=== PATIENT | male | born 1935 | race American Indian/Alaskan Native ===

== ENCOUNTER 2018-07-17 00:28 | Inpatient (IN) | payer MEDICARE, OTHER ==
[2018-07-17 01:26] LABS: Eosinophils # (Auto) 0.1 K/mm3 (0.0-0.4); Eosinophils % (Auto) 1.8 % (0.0-4.3); Hematocrit 41.2 % (35.5-45.6); Hemoglobin 13.5 gm/dl (11.8-15.2); Lymphocytes % (Auto) 46.1 % (13.4-35.0); Mean Corpuscular HGB Conc 33 % (32-34); Mean Corpuscular Volume 95 fl (84-94); Monocytes # (Auto) 0.4 K/mm3 (0.0-0.8); Monocytes % (Auto) 8.5 % (0.0-7.3); Platelet Count 158 K/mm3 (140-440); Red Blood Count 4.33 M/mm3 (3.65-5.03); Red Cell Distribution Width 14.8 % (13.2-15.2)
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
[2018-07-17 01:42] LABS: BUN/Creatinine Ratio 17; Blood Urea Nitrogen 19 mg/dL (9-20); Calcium 9.1 mg/dL (8.4-10.2); Hemolysis Index 9
--- NOTE | 2018-07-17 01:53 | XRay Report ---
FINAL REPORT PROCEDURE: XR CHEST 1V AP TECHNIQUE: Chest radiograph anteroposterior view. CPT 96879 HISTORY: chest pain COMPARISON: December 21, 2017 FINDINGS: Heart: Normal. Mediastinum/Vessels: Normal. Lungs/Pleural space: Normal. Bony thorax: No acute osseous abnormality. Life support devices: None. IMPRESSION: No acute cardiopulmonary abnormality.
--- NOTE | 2018-07-17 02:23 | Cat Scan Report ---
FINAL REPORT PROCEDURE: CT HEAD/BRAIN WO CON TECHNIQUE: Computerized tomography of the head was performed without contrast material. HISTORY: dizziness COMPARISON: No prior studies are available for comparison. FINDINGS: Skull and scalp: Normal. Paranasal sinuses: Normal. Ventricles and subarachnoid spaces: Normal. Cerebrum: No evidence of hemorrhage, acute infarction or mass . Cerebellum and brainstem: No evidence of hemorrhage, acute infarction or mass. Vasculature: Normal. Comments: None. IMPRESSION: Normal Examination
[2018-07-17] MEDS ORDERED: SODIUM CHLORIDE FLUSH SYRINGE 10 ML IV PRN ×2 (03:34)
[2018-07-17] MEDS ORDERED: ZOFRAN IV PRN (03:34)
[2018-07-17] MEDS ORDERED: MORPHINE IV PRN (03:34)
[2018-07-17] MEDS ORDERED: TYLENOL PO PRN (03:34)
[2018-07-17 04:13] LABS: Basophils % (Auto) 0.8 % (0.0-1.8); Eosinophils # (Auto) 0.1 K/mm3 (0.0-0.4); Eosinophils % (Auto) 2.1 % (0.0-4.3); Hematocrit 38.5 % (35.5-45.6); Hemoglobin 12.9 gm/dl (11.8-15.2); Lymphocytes # (Auto) 2.4 K/mm3 (1.2-5.4); Lymphocytes % (Auto) 52.9 % (13.4-35.0); Mean Corpuscular HGB Conc 33 % (32-34); Mean Corpuscular Volume 94 fl (84-94); Monocytes # (Auto) 0.4 K/mm3 (0.0-0.8); Monocytes % (Auto) 8.1 % (0.0-7.3); Platelet Count 157 K/mm3 (140-440); Red Blood Count 4.08 M/mm3 (3.65-5.03); Red Cell Distribution Width 14.7 % (13.2-15.2)
--- NOTE | 2018-07-17 05:15 | History and Physical Report ---
History of Present Illness Date of examination: 07/17/18 Date of admission: 07/17/18 04:18 Chief complaint: high blood pressure and dizine History of present illness: Patient is an 82-year-old male with PMHx of CAD/status post S/P ID and stent placement, hypertension, hyperlipidemia, who presents to the ER with the complaints of dizziness, " seeing dark spot ", sweating and elevated blood pressure about 40 mins prior to coming to the ER. Patient states that he was in his garage playing Ping pong when he started feeling lightheaded, he was seen dark spots, he states that went to check his blood pressure which was above 216/116, and he starts to feel having chest pain. Patient states that he called EMS, he was instructed to take a nitro sublingual and an aspirin while waiting for rescue to arrive. Patient reports intermittent substernal chest pain, loca ronna on the left side of the chest, no radiation to the arm and diaphoresis. Patient reports similar chest pain in the past with ID, he denies shortness of breath, denies headache, denies nausea, denies vomiting, denies syncope. Patient was seen in the ER, his EKG shows no acute STEMI criteria, fist cardiac enzymes is negative, his chest x-ray is negative and his blood pressure was elevated. Pt was initially treated in the ER, and admitted for chest pain to rule out ACS. Past History Past Medical History: acute ID, arthritis, hypertension, hyperlipidemia Past Surgical History: Other (Endarterectomy) Social history: , other (quit smoking) Family history: no significant family history Medications and Allergies Allergies Allergy/AdvReac Type Severity Reaction Status Date / Time No Known Allergies Allergy Verified 06/29/15 15:28 Home Medications Medication Instructions Recorded Confirmed Last Taken Type Multivitamin [Multi-Vitamin Daily] 1 each PO DAILY 05/11/14 12/22/17 02/12/15 History Lisinopril [Zestril TAB] 5 mg PO QDAY #30 tablet 02/16/15 12/22/17 12/20/17 Rx 5 Atorvastatin [Lipitor] 80 mg PO QHS 09/14/15 12/22/17 12/21/17 09:00 History 80 Vit D3-Vit K/Berberine/Hops 1 tab PO DAILY 09/14/15 12/22/17 1 Day Ago History [Ostera Tablet] ~12/21/17 Aspirin [Aspirin BABY CHEW TAB] 81 mg PO QDAY #30 tab.chew 09/19/15 12/22/17 12/21/17 09:00 Rx 81 Clopidogrel [Plavix] 75 mg PO DAILY #30 tablet 09/19/15 12/22/17 12/20/17 09:00 Rx 75 Carvedilol [Coreg] 12.5 mg PO BID 12/21/17 12/22/17 12/20/17 History 12.5 Finasteride [Proscar] 5 mg PO QHS 12/22/17 12/22/17 2 Days Ago History ~12/20/17 Tamsulosin HCl [Flomax] 0.4 mg PO QHS 12/22/17 12/22/17 Unknown History ISOSORBIDE MONOnitrate [Imdur ER] 60 mg PO QDAY 07/17/18 07/17/18 07/16/18 History 60 mg Active Meds: Active Medications Acetaminophen (Tylenol) 650 mg PO Q4H PRN PRN Reason: Pain MILD(1-3)/Fever >100.5/HERNANDEZ Aspirin (Ecotrin) 325 mg PO QDAY [facility] Famotidine (Pepcid) 20 mg IV BID [facility] Morphine Sulfate (Morphine) 2 mg IV Q4H PRN PRN Reason: Pain, Moderate (4-6) Ondansetron HCl (Zofran) 4 mg IV Q8H PRN PRN Reason: Nausea And Vomiting Sodium Chloride (Sodium Chloride Flush Syringe 10 Ml) 10 ml IV BID [facility] Sodium Chloride (Sodium Chloride Flush Syringe 10 Ml) 10 ml IV PRN PRN PRN Reason: LINE FLUSH Review of Systems Cardiovascular: chest pain, lightheadedness Exam - Constitutional Vitals: Temp Pulse Resp BP Pulse Ox 98.1 F 57 L 14 179/88 94 07/17/18 00:47 07/17/18 04:00 07/17/18 04:00 07/17/18 04:15 07/17/18 04:15 General appearance: Present: no acute distress - EENT Eyes: Present: PERRL, EOM intact ENT: hearing intact - Neck Neck: Present: supple, normal ROM - Respiratory Respiratory effort: normal Respiratory: bilateral: CTA - Cardiovascular Rhythm: regular - Rectal Rectal Exam: deferred - Integumentary Integumentary: Present: warm, dry - Musculoskeletal Musculoskeletal: strength equal bilaterally - Psychiatric Psychiatric: appropriate mood/affect, memory intact - Neurologic Neurologic: moves all extremities Results - Labs CBC & Chem 7: 07/17/18 03:51 07/17/18 01:01 Labs: Laboratory Last Values WBC 4.5 K/mm3 (4.5-11.0) 07/17/18 03:51 RBC 4.08 M/mm3 (3.65-5.03) 07/17/18 03:51 Hgb 12.9 gm/dl (11.8-15.2) 07/17/18 03:51 Hct 38.5 % (35.5-45.6) 07/17/18 03:51 MCV 94 fl (84-94) 07/17/18 03:51 MCH 32 pg (28-32) 07/17/18 03:51 MCHC 33 % (32-34) 07/17/18 03:51 RDW 14.7 % (13.2-15.2) 07/17/18 03:51 Plt Count 157 K/mm3 (140-440) 07/17/18 03:51 Lymph % (Auto) 52.9 % (13.4-35.0) H 07/17/18 03:51 [place] % (Auto) 8.1 % (0.0-7.3) H 07/17/18 03:51 Eos % (Auto) 2.1 % (0.0-4.3) 07/17/18 03:51 Baso % (Auto) 0.8 % (0.0-1.8) 07/17/18 03:51 Lymph # 2.4 K/mm3 (1.2-5.4) 07/17/18 03:51 [place] # 0.4 K/mm3 (0.0-0.8) 07/17/18 03:51 Eos # 0.1 K/mm3 (0.0-0.4) 07/17/18 03:51 Baso # 0.0 K/mm3 (0.0-0.1) 07/17/18 03:51 Seg Neutrophils % 36.1 % (40.0-70.0) L 07/17/18 03:51 Seg Neutrophils # 1.6 K/mm3 (1.8-7.7) L 07/17/18 03:51 Sodium 145 mmol/L (137-145) 07/17/18 01:01 Potassium 4.2 mmol/L (3.6-5.0) 07/17/18 01:01 Chloride 109.6 mmol/L (98-107) H 07/17/18 01:01 Carbon Dioxide 29 mmol/L (22-30) 07/17/18 01:01 Anion Gap 11 mmol/L 07/17/18 01:01 BUN 19 mg/dL (9-20) 07/17/18 01:01 Creatinine 1.1 mg/dL (0.8-1.5) 07/17/18 01:01 Estimated GFR > 60 ml/min 07/17/18 01:01 BUN/Creatinine Ratio 17 % 07/17/18 01:01 Glucose 119 mg/dL (75-100) H 07/17/18 01:01 Calcium 9.1 mg/dL (8.4-10.2) 07/17/18 01:01 Troponin T < 0.010 ng/mL (0.00-0.029) 07/17/18 01:01 Assessment and Plan Assessment and plan: 1. Chest pain r/o ACS 2. CAD/ID s/p stent placement 3. Accelerated hypertension 4. Hyperlipidemia 5. 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
[2018-07-17 05:30] LABS: BUN/Creatinine Ratio 19; Blood Urea Nitrogen 19 mg/dL (9-20); Hemolysis Index 8
[2018-07-17] MEDS ORDERED: ZESTRIL PO SCH (10:00)
[2018-07-17] MEDS ORDERED: NON-FORMULARY (Multivitamin [Multi-Vitamin Daily] 1 EACH) PO SCH (10:00)
[2018-07-17] MEDS: IMDUR PO SCH (10:50)
[2018-07-17] MEDS: THERAGRAN Tab PO SCH (10:50)
[2018-07-17] MEDS: BABY ASPIRIN PO SCH (10:51)
[2018-07-17] MEDS: PEPCID IV SCH ×2 (10:51→22:35)
[2018-07-17] MEDS: COREG PO SCH ×2 (10:51→22:34)
[2018-07-17] MEDS: SODIUM CHLORIDE FLUSH SYRINGE 10 ML IV SCH ×2 (10:51→22:36)
--- NOTE | 2018-07-17 13:16 | Consultation ---
History of Present Illness Consult date: 07/17/18 Consult reason: chest pain History of present illness: The patient is an 82-year-old man with multivessel coronary artery disease. In January 2015, he underwent staged 2 vessel coronary intervention with drug- eluting stent placement to the mid LAD, followed by a second vessel drug-eluting stent implantation into the proximal and distal segments of the right coronary artery. Left ventricular function assessment demonstrated well preserved left ventricle systolic function. 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 He presents to the hospital at this time, complains that his blood pressure was markedly elevated at home, 218 systolic, associated with dizziness and some visual symptoms including diplopia. In the ambulance, his blood pressure remained over 200, but with further intervention the blood pressure was 160 systolic in the emergency room. In addition to his neurological symptoms, he also felt some left-sided chest pressure, which resolved by the time of his arrival in the emergency room. EKG in the hospital is normal sinus rhythm, left axis deviation, left ventricular hypertrophy, poor with progression of the possible old anterior myocardial infarction. No acute ST or T-wave abnormalities were noted. The cardiac troponin levels are normal. Past History Past Medical History: acute ID, arthritis, CAD, hypertension, hyperlipidemia Past Surgical History: PTCA, Other (Endarterectomy) Social history: , other (quit smoking) Family history: no significant family history Medications and Allergies Allergies Allergy/AdvReac Type Severity Reaction Status Date / Time No Known Allergies Allergy Verified 06/29/15 15:28 Home Medications Medication Instructions Recorded Confirmed Last Taken Type Multivitamin [Multi-Vitamin Daily] 1 each PO DAILY 05/11/14 07/17/18 07/14/18 History Lisinopril [Zestril TAB] 5 mg PO QDAY #30 tablet 02/16/15 07/17/18 07/16/18 Rx 5 mg Atorvastatin [Lipitor] 80 mg PO QHS 09/14/15 07/17/18 07/15/18 History 80 mg Vit D3-Vit K/Berberine/Hops 1 tab PO DAILY 09/14/15 07/17/18 07/14/18 History [Ostera Tablet] Aspirin [Aspirin BABY CHEW TAB] 81 mg PO QDAY #30 tab.chew 09/19/15 07/17/18 07/16/18 Rx 81 Clopidogrel [Plavix] 75 mg PO DAILY #30 tablet 09/19/15 07/17/18 07/16/18 Rx 75 mg Carvedilol [Coreg] 12.5 mg PO BID 12/21/17 07/17/18 07/16/18 History 12.5 mg Finasteride [Proscar] 5 mg PO QHS 12/22/17 07/17/18 07/16/18 History 5 mg Tamsulosin HCl [Flomax] 0.4 mg PO QHS 12/22/17 07/17/18 07/16/18 History 0.4 mg ISOSORBIDE MONOnitrate [Imdur ER] 60 mg PO QDAY 07/17/18 07/17/18 07/16/18 History 60 mg Active Meds: Active Medications Acetaminophen (Tylenol) 650 mg PO Q4H PRN PRN Reason: Pain MILD(1-3)/Fever >100.5/HERNANDEZ Aspirin (Ecotrin) 325 mg PO QDAY [facility] Aspirin (Baby Aspirin) 81 mg PO QDAY [facility] Last Admin: 07/17/18 10:51 Dose: 81 mg Documented by: Atorvastatin Calcium (Lipitor) 80 mg PO QHS [facility] Carvedilol (Coreg) 12.5 mg PO BID [facility] Last Admin: 07/17/18 10:51 Dose: 12.5 mg Documented by: Famotidine (Pepcid) 20 mg IV BID [facility] Last Admin: 07/17/18 10:51 Dose: 20 mg Documented by: Finasteride (Proscar) 5 mg PO QHS [facility] Isosorbide Mononitrate (Imdur) 60 mg PO QDAY [facility] Last Admin: 07/17/18 10:50 Dose: 60 mg Documented by: Lisinopril (Zestril) 5 mg PO QDAY [facility] Last Admin: 07/17/18 10:52 Dose: 5 mg Documented by: Morphine Sulfate (Morphine) 2 mg IV Q4H PRN PRN Reason: Pain, Moderate (4-6) Multivitamins (Theragran Tab) 1 each PO DAILY [facility] Last Admin: 07/17/18 10:50 Dose: 1 each Documented by: Ondansetron HCl (Zofran) 4 mg IV Q8H PRN PRN Reason: Nausea And Vomiting Sodium Chloride (Sodium Chloride Flush Syringe 10 Ml) 10 ml IV BID [facility] Last Admin: 07/17/18 10:51 Dose: 10 ml Documented by: Sodium Chloride (Sodium Chloride Flush Syringe 10 Ml) 10 ml IV PRN PRN PRN Reason: LINE FLUSH Review of Systems Cardiovascular: chest pain, shortness of breath, no orthopnea, no palpitations, no rapid/irregular heart beat, no edema, no syncope, no lightheadedness Neurological: double vision, other (dizziness and lightheadedness) Physical Examination Vital Signs Pulse Ox 85 07/17/18 00:46 General appearance: no acute distress HEENT: Positive: PERRL Neck: Positive: neck supple Cardiac: Positive: Reg Rate and Rhythm Lungs: Positive: Decreased Breath Sounds Neuro: Positive: Grossly Intact Abdomen: Positive: Soft Male genitourinary: Positive: deferred Skin: Positive: Clear Extremities: Absent: edema Results 07/17/18 03:51 07/17/18 03:51 CBC 07/17/18 07/17/18 Range/Units 01:01 03:51 WBC 4.2 L 4.5 (4.5-11.0) K/mm3 RBC 4.33 4.08 (3.65-5.03) M/mm3 Hgb 13.5 12.9 (11.8-15.2) gm/dl Hct 41.2 38.5 (35.5-45.6) % Plt Count 158 157 (140-440) K/mm3 Lymph # 2.0 2.4 (1.2-5.4) K/mm3 [place] # 0.4 0.4 (0.0-0.8) K/mm3 Eos # 0.1 0.1 (0.0-0.4) K/mm3 Baso # 0.0 0.0 (0.0-0.1) K/mm3 Comprehensive Metabolic Panel 07/17/18 07/17/18 Range/Units 01:01 03:51 Sodium 145 147 H (137-145) mmol/L Potassium 4.2 4.3 (3.6-5.0) mmol/L Chloride 109.6 H 112.0 H (98-107) mmol/L Carbon Dioxide 29 28 (22-30) mmol/L BUN 19 19 (9-20) mg/dL Creatinine 1.1 1.0 (0.8-1.5) mg/dL Glucose 119 H 96 (75-100) mg/dL Calcium 9.1 9.0 (8.4-10.2) mg/dL EKG interpretations - Telemetry EKG Rhythm: Sinus Rhythm Assessment and Plan - Patient Problems (1) Chest pain Current Visit: Yes Status: Acute Plan to address problem: Patient has history of multivessel coronary artery disease as described above, will need further ischemic cardiac evaluation with a thallium stress test prior to discharge. Echocardiogram will be ordered for left ventricular function assessment. (2) HTN (hypertension) Current Visit: No Status: Chronic Qualifiers: Hypertension type: essential hypertension Plan to address problem: Uncontrolled hypertension, will be treated aggressively with additional antihypertensive agents and recommendation for a strict salt controlled diet.
--- NOTE | 2018-07-17 13:29 | Event Note ---
Date: 07/17/18 Patient admitted for chest pain rule out AL and this morning Reevaluated Stable 1. Chest pain r/o ACS 2. CAD/AL s/p stent placement 3. Accelerated hypertension 4. Hyperlipidemia 5. BPH
[2018-07-17] MEDS ORDERED: NACL 0.45% 1000 ML 1,000 ML IV SCH (14:00)
[2018-07-17] MEDS: PLAVIX PO SCH (15:02)
[2018-07-17] MEDS ORDERED: NON-FORMULARY (Atorvastatin [Lipitor] 80 MG) PO SCH (22:00)
[2018-07-17] MEDS: PROSCAR PO SCH (22:36)
[2018-07-18] MEDS ORDERED: ECOTRIN PO SCH (10:00)
[2018-07-18] MEDS: THERAGRAN Tab PO SCH (10:35)
[2018-07-18] MEDS: PEPCID IV SCH ×2 (10:35→21:45)
[2018-07-18] MEDS: PLAVIX PO SCH (10:35)
[2018-07-18] MEDS: ZESTRIL PO SCH (10:35)
[2018-07-18] MEDS: BABY ASPIRIN PO SCH (10:35)
[2018-07-18] MEDS: IMDUR PO SCH (10:35)
[2018-07-18] MEDS: COREG PO SCH ×2 (10:35→21:45)
[2018-07-18] MEDS: SODIUM CHLORIDE FLUSH SYRINGE 10 ML IV SCH ×2 (10:36→21:46)
--- NOTE | 2018-07-18 11:06 | Progress Note ---
Assessment and Plan /Chest pain r/o ACS - cont aspirin statin - likely from uncontrolled BP - plan for stress test before d/c - ordered 2d echo /CAD/[place] s/p stent placement on 2014 - medical mx for now, cardiology consulted / Uncontrolled hypertension - cont to monitor BP and adjust meds / Hyperlipidemia, cont statin / BPH, cont proscar Brief history: Patient is an 82-year-old male with PMHx of CAD/status post S/P [place] and stent placement, hypertension, hyperlipidemia, who presents to the ER by EMS with the complaints of dizziness, " seeing dark spot ", sweating, chest pain and elevated blood pressure of 216/116. and he starts to feel having chest pain. Patient was seen in the ER, his EKG shows no acute STEMI criteria, fist cardiac enzymes is negative, his chest x-ray is negative and his blood pressure was elevated. Pt was admitted for chest pain to rule out ACS and uncontrolled BP. Subjective Date of service: 07/18/18 Interval history: Patient seen and examined pending stress test, tolerating diet No SOB, denies chest pain now Objective - Constitutional Vitals: Vital Signs - 12hr 07/18/18 07/18/18 07/18/18 00:19 00:46 04:27 Temperature 97.0 F L Pulse Rate 68 72 69 Respiratory 18 18 Rate Blood Pressure 126/78 143/79 O2 Sat by Pulse 98 98 Oximetry 07/18/18 07/18/18 07/18/18 08:09 08:10 10:59 Temperature 97.5 F L Pulse Rate 80 59 L Respiratory 18 Rate Blood Pressure 130/77 O2 Sat by Pulse 97 Oximetry General appearance: Present: no acute distress, well-nourished - EENT Eyes: PERRL, EOM intact ENT: hearing intact, clear oral mucosa Ears: bilateral: normal - Neck Neck: supple, normal ROM - Respiratory Respiratory effort: normal Respiratory: bilateral: CTA - Cardiovascular Rhythm: regular Heart Sounds: Present: S1 & S2. Absent: gallop, rub Extremities: pulses intact, No edema, normal color, Full ROM - Gastrointestinal General gastrointestinal: Present: soft, non-tender, non-distended, normal bowel sounds - Integumentary Integumentary: clear, warm, dry - Musculoskeletal Musculoskeletal: 1, strength equal bilaterally - Neurologic Neurologic: moves all extremities - Psychiatric Psychiatric: memory intact, appropriate mood/affect, intact judgment & insight - Labs CBC & Chem 7: 07/17/18 03:51 07/17/18 03:51 - Imaging and cardiology Chest x-ray: report reviewed CT Scan - head: report reviewed
--- NOTE | 2018-07-18 13:09 | Progress Note ---
Assessment and Plan - Patient Problems (1) Chest pain Current Visit: Yes Status: Acute Plan to address problem: Patient has history of multivessel coronary artery disease as described above, will need further ischemic cardiac evaluation with a thallium stress test prior to discharge. Echocardiogram will be ordered for left ventricular function assessment. (2) HTN (hypertension) Current Visit: No Status: Chronic Qualifiers: Hypertension type: essential hypertension Plan to address problem: Uncontrolled hypertension, will be treated aggressively with additional antihypertensive agents and recommendation for a strict salt controlled diet. Subjective Date of service: 07/18/18 Interval history: Patient is comfortable, no further chest pain, looks and feels better. Objective Vital Signs Temp Pulse Resp BP BP Pulse Ox 07/18/18 12:28 73 18 125/81 97 07/18/18 10:59 59 L 07/18/18 08:10 80 18 130/77 97 07/18/18 08:09 97.5 F L 07/18/18 04:27 97.0 F L 69 18 143/79 98 07/18/18 00:46 72 07/18/18 00:19 68 18 126/78 98 07/17/18 22:34 78 118/73 07/17/18 19:42 97.6 F 78 18 118/73 98 07/17/18 17:50 97.8 F 80 18 125/66 91 07/17/18 17:44 82 20 125/66 90 07/17/18 17:21 84 18 97/60 98 - Physical Examination General: No Apparent Distress HEENT: Positive: PERRL Neck: Positive: neck supple Cardiac: Positive: Reg Rate and Rhythm Lungs: Positive: Decreased Breath Sounds Neuro: Positive: Grossly Intact Abdomen: Positive: Soft Skin: Positive: Clear Extremities: Absent: edema
[2018-07-18] MEDS: PROSCAR PO SCH (21:46)
[2018-07-18] MEDS ORDERED: MORPHINE IV PRN (22:00)
[2018-07-19] MEDS ORDERED: LEXISCAN IV ONE (10:00)
[2018-07-19] MEDS: PLAVIX PO SCH (11:48)
[2018-07-19] MEDS: THERAGRAN Tab PO SCH (11:48)
[2018-07-19] MEDS: BABY ASPIRIN PO SCH (11:49)
[2018-07-19] MEDS: IMDUR PO SCH (11:49)
[2018-07-19] MEDS: PEPCID IV SCH (11:49)
[2018-07-19] MEDS: COREG PO SCH (11:50)
[2018-07-19] MEDS: ZESTRIL PO SCH (11:50)
[2018-07-19] MEDS: SODIUM CHLORIDE FLUSH SYRINGE 10 ML IV SCH (11:51)
--- NOTE | 2018-07-19 14:37 | Event Note ---
Date: 07/19/18 The patient underwent stress test today during which extends for 7 minutes, the grade was held in stage II. He achieved 7.5 METS. The was no chest pain, no ST changes of ischemia and no dysrhythmias. Thallium perfusion images were normal. Patient is stable for cardiac discharge on medical therapy as previously outlined. Recommend follow-up in my office in one to 2 weeks.
[2018-07-19 14:50] VITALS: BP 134/80
--- NOTE | 2018-07-19 15:38 | Discharge Summary ---
Providers - Providers Date of Admission: 07/17/18 04:18 Date of discharge: 07/19/18 Attending physician: CALEB MILLER 07/17/18 Consult to Cardiac Rehabilitation [CONS] Routine Reason For Exam: Phase I 07/17/18 06:15 Consult to Cardiology [CONS] Routine Consulting Provider: STACEY GORDON Reason For Exam: chest pain Primary care physician: BASSEM VALDEZ Hospitalization Reason for admission: chest pain Condition: Stable Pertinent studies: CT head CXR 2d echo stress test Hospital course: Brief history: Patient is an 82-year-old male with PMHx of CAD/status post S/P [place] and stent placement, hypertension, hyperlipidemia, who presented to the ER by EMS with the complaints of dizziness, " seeing dark spot ", sweating, chest pain and elevated blood pressure of 216/116. and he starts to feel having chest pain. Patient was seen in the ER, his EKG shows no acute STEMI criteria, fist cardiac enzymes is negative, his chest x-ray is negative and his blood pressure was elevated. Patient was admitted for chest pain to rule out ACS and uncontrolled BP. Discharge diagnosis and management: /Chest pain, ruled out ACS - cont aspirin statin - likely from uncontrolled BP and possible GERD - normal exercise stress test - 2d echo showed Ef 45-50% /CAD/AK s/p stent placement on 2014 - medical mx for now, cardiology consulted / Uncontrolled hypertension - monitored BP and adjusted meds for better control. / Hyperlipidemia, cont statin / BPH, cont proscar Disposition: DC-01 TO HOME OR SELFCARE Time spent for discharge: 34 minutes Core Measure Documentation - Palliative Care Palliative Care/ Comfort Measures: Not Applicable - Core Measures Any of the following diagnoses?: none Exam - Constitutional Vitals: Temp Pulse Resp BP Pulse Ox 97.4 F L 78 16 134/80 97 07/19/18 12:18 07/19/18 12:18 07/19/18 12:18 07/19/18 12:18 07/19/18 12:18 General appearance: Present: no acute distress, well-nourished - EENT Eyes: Present: PERRL ENT: hearing intact, clear oral mucosa - Neck Neck: Present: supple, normal ROM - Respiratory Respiratory effort: normal Respiratory: bilateral: CTA - Cardiovascular Heart Sounds: Present: S1 & S2. Absent: rub, click - Extremities Extremities: pulses symmetrical, No edema Peripheral Pulses: within normal limits - Abdominal General gastrointestinal: Present: soft, non-tender, non-distended, normal bowel sounds - Integumentary Integumentary: Present: clear, warm, dry - Musculoskeletal Musculoskeletal: gait normal, strength equal bilaterally - Psychiatric Psychiatric: appropriate mood/affect, intact judgment & insight - Neurologic Neurologic: CNII-XII intact, moves all extremities Plan Activity: advance as tolerated Weight Bearing Status: Weight Bear as Tolerated Diet: low fat, low salt Special Instructions: no heavy lifting Follow up with: BASSEM VALDEZ MD [Primary Care Provider] - 7 Days STACEY GORDON MD [Staff Physician] - 7 Days Prescriptions: Lisinopril [Zestril TAB] 10 mg PO QDAY #30 tablet Pantoprazole [Protonix] 40 mg PO QDAY #30 tablet
--- NOTE | 2018-07-19 22:41 | Treadmill Report ---
THALLIUM STRESS TEST LEFT VENTRICLE: Left ventricular chamber size is within normal spread. Perfusion study demonstrates homogeneous uptake of the tracer in all segments, no significant defects identified. Gated analysis demonstrates normal left ventricular systolic function, ejection fraction 60%. CONCLUSION: Normal myocardial perfusion study. JOB# [id number] CA/NTS
== END 2018-07-19 17:40 | disposition home or self-care (01) | DRG 392 ==
LOC: ED 00:28 → 4A 04:18
PROVIDERS: ADMIT Internal Medicine; ATTEND Internal Medicine
DX: K21.9 Gastro-esophageal reflux disease without esophagitis (principal); E87.0 Hyperosmolality and hypernatremia; I10 Essential (primary) hypertension; I25.10 Atherosclerotic heart disease of native coronary artery without angina pectoris; E78.5 Hyperlipidemia, unspecified; N40.0 Benign prostatic hyperplasia without lower urinary tract symptoms; Z79.82 Long term (current) use of aspirin; Z79.899 Other long term (current) drug therapy; I25.2 Old myocardial infarction; Z95.5 Presence of coronary angioplasty implant and graft
CPT/HCPCS: 36415; 70450; 71045; 78452; 80048; 84484; 85025; 93005; 93010; 93017; 93306; G0378; A9270-GY; A9502; J2270; J2785

== ENCOUNTER 2019-01-29 17:10 | Inpatient (IN) | payer MEDICARE, OTHER ==
[2019-01-29] MEDS ORDERED: NACL 0.9% 1000 ML 1,000 ML IV ONE (17:42)
[2019-01-29] MEDS ORDERED: ZOFRAN IV ONE (17:42)
[2019-01-29] MEDS ORDERED: SUBLIMAZE IV ONE (17:42)
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
[2019-01-29 17:57] LABS: Basophils % (Auto) 0.5 % (0.0-1.8); Hematocrit 39.5 % (35.5-45.6); Hemoglobin 13.4 gm/dl (11.8-15.2); Lymphocytes # (Auto) 0.5 K/mm3 (1.2-5.4); Lymphocytes % (Auto) 8.3 % (13.4-35.0); Mean Corpuscular HGB Conc 34 % (32-34); Mean Corpuscular Volume 92 fl (84-94); Monocytes # (Auto) 0.2 K/mm3 (0.0-0.8); Monocytes % (Auto) 3.6 % (0.0-7.3); Platelet Count 218 K/mm3 (140-440); Red Blood Count 4.28 M/mm3 (3.65-5.03); Red Cell Distribution Width 14.3 % (13.2-15.2)
[2019-01-29 18:08] LABS: INR 1.26 (0.87-1.13)
[2019-01-29 18:09] LABS: Partial Thromboplastin Time 54.7 Sec. (24.2-36.6)
[2019-01-29 18:50] LABS: Alanine Aminotransferase 11 units/L (7-56); Albumin 3.4 g/dL (3.9-5); BUN/Creatinine Ratio 11; Blood Urea Nitrogen 12 mg/dL (9-20); Calcium 8.6 mg/dL (8.4-10.2); Hemolysis Index 4
[2019-01-29] MEDS ORDERED: LEVAQUIN 750MG/150ML 750 MG/150 ML BAG IV ONE (19:43)
[2019-01-29] MEDS ORDERED: FLAGYL 500 MG/100 ML 500 MG/100 ML BAG IV ONE (19:43)
--- NOTE | 2019-01-29 19:45 | Cat Scan Report ---
CT ABDOMEN AND PELVIS WITH IV CONTRAST INDICATION: diffuse abdominal pain nausea vomiting. COMPARISON: None available. TECHNIQUE: All CT scans at this facility use dose modulation, automated exposure control, iterative reconstructi on or weight based dosing, when appropriate, to reduce radiation dose to as low as reasonably achieva ble. FINDINGS: Lung Bases: Clear. Skeletal System: No acute abnormality. ABDOMEN: Liver: Normal. Gallbladder: There is a calcified gallstone. Bile Ducts: Normal. Pancreas: Normal. Spleen: There is a subtle 1.4 cm hypodense lesion in the medial superior spleen on series 2 image 33. Adrenals: There are single left and single right bilateral adrenal nodules. Right Kidney: Normal. Left Kidney: Normal. Stomach and Bowel: Normal. Lymph Nodes: No significant adenopathy. Aorta: No significant abnormality. Additional Findings: Small foci of free air are noted. There is trace free fluid. PELVIS: Colon: There is focal inflammation in the mid sigmoid colon in the region of extensive diverticulosis . Within the adjacent pericolonic fat there is ill-defined gas and fluid (as seen on axial image 121) . No discrete, drainable fluid collection is seen. Urinary Bladder and Distal Ureters: Normal. Appendix: There is mild wall thickening in the appendix. However, gas is noted throughout the appendi x. Lymph Nodes: No significant adenopathy. Additional Findings: There is a small amount of free fluid in the pelvis. IMPRESSION: 1. Perforated acute sigmoid diverticulitis. There is pericolonic gas and fluid but no discrete, drai nable fluid collection is seen at this time. There is a small amount of free fluid and free air. No o bstruction is seen. Imaging follow-up is recommended after treatment to confirm resolution. 2. There is mild secondary inflammation of the appendix and pelvic loops of small bowel. Gas is note d throughout the appendix. 3. Subtle 1.4 cm hypodense lesion in the medial spleen is nonspecific. Follow-up is recommended. 4. Numerous additional, incidental findings as above. COMMUNICATION: Time of Communication: 6:38 PM [place] Licensed Practitioner Receiving Report: Dr. Lamb Signer Name: Richard Awan MD Signed: 01/29/2019 7:40 PM Workstation Name: [employer]
[2019-01-29] MEDS ORDERED: ZOFRAN IV PRN (21:11)
[2019-01-29] MEDS ORDERED: TYLENOL PO PRN (21:11)
[2019-01-29] MEDS ORDERED: SODIUM CHLORIDE FLUSH SYRINGE 10 ML IV PRN (21:11)
--- NOTE | 2019-01-29 21:18 | History and Physical Report ---
<JUVENCIO MENJIVAR - Last Filed: 01/29/19 23:04> History of Present Illness Date of examination: 01/29/19 Date of admission: 01/29/2019 Chief complaint: abdominal pain History of present illness: Pt is an 83-year-old male with PMHx of HTN, CAD/FL, hyperlipidemia, BPH, GERD, OA who presents to the ER with c/o abdominal pain x > 1 week. Pt states that the pain is a constant pain located in the LLQ with radiation to the mid epigastic area for at least a week. Pt states that he went to the [place] yesterday for evaluation, he had some labs and IV medications (not sure exactly). Pt states that he was diagnosed with GERD and given a prescription for Naprosyn for the pain and was discharge. Pt states that today he was very nauseated, had a few episodes of vomiting, his pain was increasingly getting worse, he decided to come to the ER for evaluation Pt denies diarrhea or constipation, he denies anorexia, denies recent weight loss, denies recent travelling, denies ill- contact, denies blood on her stool or emesis, denies fever or chills. In the ER, he had a CT scan of the abdomen and pelvic that showed a perforated acute sigmoid diverticulitis, subtle hypodense lesion in the medial spleen is non specific. Pt was started on antibiotic and admitted for further evaluation and treatment. Past History Past Medical History: arthritis, CAD, hypertension, hyperlipidemia, other (BPH) Past Surgical History: Other (PTCA with stent) Social history: no significant social history Family history: no significant family history Medications and Allergies Allergies Allergy/AdvReac Type Severity Reaction Status Date / Time No Known Allergies Allergy Verified 06/29/15 15:28 Home Medications Medication Instructions Recorded Confirmed Last Taken Type Multivitamin [Multi-Vitamin Daily] 1 each PO DAILY 05/11/14 07/17/18 07/14/18 History Atorvastatin [Lipitor] 80 mg PO QHS 09/14/15 07/17/18 07/15/18 History 80 mg Vit D3-Vit K/Berberine/Hops 1 tab PO DAILY 09/14/15 07/17/18 07/14/18 History [Ostera Tablet] Aspirin [Aspirin BABY CHEW TAB] 81 mg PO QDAY #30 tab.chew 09/19/15 07/17/1819 Rx 81 Clopidogrel [Plavix] 75 mg PO DAILY #30 tablet 09/19/15 07/17/18 07/16/18 Rx 75 mg Carvedilol [Coreg] 12.5 mg PO BID 12/21/17 07/17/18 07/16/18 History 12.5 mg Finasteride [Proscar] 5 mg PO QHS 12/22/17 07/17/18 07/16/18 History 5 mg Tamsulosin HCl [Flomax] 0.4 mg PO QHS 12/22/17 07/17/18 07/16/18 History 0.4 mg ISOSORBIDE MONOnitrate [Imdur ER] 60 mg PO QDAY 07/17/18 07/17/18 07/16/18 History 60 mg Lisinopril [Zestril TAB] 10 mg PO QDAY #30 tablet 07/19/18 Unknown Rx Pantoprazole [Protonix] 40 mg PO QDAY #30 tablet 07/19/18 Unknown Rx Review of Systems Gastrointestinal: abdominal pain, nausea Exam - Constitutional Vitals: Temp Pulse Resp BP Pulse Ox 99.2 F 108 H 24 149/84 96 01/29/19 17:47 01/29/19 19:50 01/29/19 19:50 01/29/19 19:50 01/29/19 19:50 General appearance: Present: no acute distress - EENT Eyes: Present: EOM intact, irregular pupil ENT: hearing intact - Neck Neck: Present: normal ROM - Respiratory Respiratory effort: normal Respiratory: bilateral: CTA - Cardiovascular Rhythm: regular - Extremities Extremities: no ischemia Peripheral Pulses: within normal limits - Abdominal General gastrointestinal: Present: tender, normal bowel sounds, other (guarded) Localized gastrointestinal: tender: diffuse Male genitourinary: Present: deferred - Rectal Rectal Exam: deferred - Integumentary Integumentary: Present: warm, dry - Musculoskeletal Musculoskeletal: generalized weakness - Psychiatric Psychiatric: cooperative - Neurologic Neurologic: moves all extremities Results - Labs CBC & Chem 7: 01/29/19 17:46 01/29/19 17:46 Labs: Laboratory Last Values WBC 6.1 K/mm3 (4.5-11.0) 01/29/19 17:46 RBC 4.28 M/mm3 (3.65-5.03) 01/29/19 17:46 Hgb 13.4 gm/dl (11.8-15.2) 01/29/19 17:46 Hct 39.5 % (35.5-45.6) 01/29/19 17:46 MCV 92 fl (84-94) 01/29/19 17:46 MCH 31 pg (28-32) 01/29/19 17:46 MCHC 34 % (32-34) 01/29/19 17:46 RDW 14.3 % (13.2-15.2) 01/29/19 17:46 Plt Count 218 K/mm3 (140-440) 01/29/19 17:46 Lymph % (Auto) 8.3 % (13.4-35.0) L 01/29/19 17:46 [place] % (Auto) 3.6 % (0.0-7.3) 01/29/19 17:46 Eos % (Auto) 0.0 % (0.0-4.3) 01/29/19 17:46 Baso % (Auto) 0.5 % (0.0-1.8) 01/29/19 17:46 Lymph # 0.5 K/mm3 (1.2-5.4) L 01/29/19 17:46 [place] # 0.2 K/mm3 (0.0-0.8) 01/29/19 17:46 Eos # 0.0 K/mm3 (0.0-0.4) 01/29/19 17:46 Baso # 0.0 K/mm3 (0.0-0.1) 01/29/19 17:46 Seg Neutrophils % 87.6 % (40.0-70.0) H 01/29/19 17:46 Seg Neutrophils # 5.3 K/mm3 (1.8-7.7) 01/29/19 17:46 PT 15.5 Sec. (12.2-14.9) H 01/29/19 17:46 INR 1.26 (0.87-1.13) H 01/29/19 17:46 APTT 54.7 Sec. (24.2-36.6) H 01/29/19 17:46 Sodium 136 mmol/L (137-145) L 01/29/19 17:46 Potassium 3.8 mmol/L (3.6-5.0) 01/29/19 17:46 Chloride 99.1 mmol/L (98-107) 01/29/19 17:46 Carbon Dioxide 26 mmol/L (22-30) 01/29/19 17:46 15 mmol/L 01/29/19 17:46 BUN 12 mg/dL (9-20) 01/29/19 17:46 1.1 mg/dL (0.8-1.5) 01/29/19 17:46 Estimated GFR > 60 ml/min 01/29/19 17:46 11 % 01/29/19 17:46 Glucose 135 mg/dL (75-100) H 01/29/19 17:46 Calcium 8.6 mg/dL (8.4-10.2) 01/29/19 17:46 0.80 mg/dL (0.1-1.2) 01/29/19 17:46 AST 10 units/L (5-40) 01/29/19 17:46 ALT 11 units/L (7-56) 01/29/19 17:46 76 units/L (35-129) 01/29/19 17:46 46 units/L (55-170) L 01/29/19 17:46 CK-MB (CK-2) 1.0 ng/mL (0.0-4.0) 01/29/19 17:46 CK-MB (CK-2) Rel Index 2.1 (0-4) 01/29/19 17:46 < 0.010 ng/mL (0.00-0.029) 01/29/19 17:46 7.0 g/dL (6.3-8.2) 01/29/19 17:46 3.4 g/dL (3.9-5) L 01/29/19 17:46 0.9 % 01/29/19 17:46 18 units/L (13-60) 01/29/19 17:46 Assessment and Plan Assessment and plan: 1. Acute perforated diverticulitis 2. Abdominal pain (due to above) 3. HTN 4. CAD/FL 5. Hyperlipidemia 6. BPH 7. GERD 8. OA Plan: Pt is admitted to med/surg Surgery is consulted for evaluation NPO now for bowel rest Continue antibiotic with Levoquin and flagy IVF for hydration Pain control with morphine PRN Antiemetic with Zofran DVT prophylaxis Plan d/w pt voiced understanding Pt's plan of care d/w Dr Mena Advance Directives: Yes VTE prophylaxis?: Chemical Plan of care discussed with patient/family: Yes <HUBER MENA - Last Filed: 01/30/19 00:23> History of Present Illness Date of admission: 01/29/19 21:11 Medications and Allergies Active Meds: Active Medications Acetaminophen (Tylenol) 650 mg PO Q4H PRN PRN Reason: Pain MILD(1-3)/Fever >100.5/HERNANDEZ Enoxaparin Sodium (Lovenox) 40 mg SUB-Q QDAY [facility] Famotidine (Pepcid) 10 mg IV BID [facility] Last Admin: 01/29/19 23:35 Dose: 10 mg Documented by: Sodium Chloride (Nacl 0.9% 1000 Ml) 1,000 mls @ 75 mls/hr IV DIRECT CHATO Last Admin: 01/29/19 23:35 Dose: 75 mls/hr Documented by: Levofloxacin/Dextrose (Levaquin 750mg/150ml) 750 mg in 150 mls @ 100 mls/hr IV Q24HR CHATO; Protocol Metronidazole (Flagyl 500 Mg/100 Ml) 500 mg in 100 mls @ 100 mls/hr IV Q8HR [facility]O; Protocol Last Admin: 01/29/19 23:34 Dose: 100 mls/hr Documented by: Morphine Sulfate (Morphine) 2 mg IV Q4H PRN PRN Reason: Pain, Moderate (4-6) Ondansetron HCl (Zofran) 4 mg IV Q8H PRN PRN Reason: Nausea And Vomiting Sodium Chloride (Sodium Chloride Flush Syringe 10 Ml) 10 ml IV BID [facility] Last Admin: 01/29/19 22:50 Dose: 10 ml Documented by: Sodium Chloride (Sodium Chloride Flush Syringe 10 Ml) 10 ml IV PRN PRN PRN Reason: LINE FLUSH Exam - Constitutional Vitals: Temp Pulse Resp BP Pulse Ox 98.5 F 97 H 18 141/72 97 01/29/19 23:44 01/29/19 23:44 01/29/19 23:44 01/29/19 23:44 01/29/19 23:44 Results - Labs CBC & Chem 7: 01/29/19 17:46 01/29/19 17:46 Labs: Laboratory Last Values WBC 6.1 K/mm3 (4.5-11.0) 01/29/19 17:46 RBC 4.28 M/mm3 (3.65-5.03) 01/29/19 17:46 Hgb 13.4 gm/dl (11.8-15.2) 01/29/19 17:46 Hct 39.5 % (35.5-45.6) 01/29/19 17:46 MCV 92 fl (84-94) 01/29/19 17:46 MCH 31 pg (28-32) 01/29/19 17:46 MCHC 34 % (32-34) 01/29/19 17:46 RDW 14.3 % (13.2-15.2) 01/29/19 17:46 Plt Count 218 K/mm3 (140-440) 01/29/19 17:46 Lymph % (Auto) 8.3 % (13.4-35.0) L 01/29/19 17:46 [place] % (Auto) 3.6 % (0.0-7.3) 01/29/19 17:46 Eos % (Auto) 0.0 % (0.0-4.3) 01/29/19 17:46 Baso % (Auto) 0.5 % (0.0-1.8) 01/29/19 17:46 Lymph # 0.5 K/mm3 (1.2-5.4) L 01/29/19 17:46 [place] # 0.2 K/mm3 (0.0-0.8) 01/29/19 17:46 Eos # 0.0 K/mm3 (0.0-0.4) 01/29/19 17:46 Baso # 0.0 K/mm3 (0.0-0.1) 01/29/19 17:46 Seg Neutrophils % 87.6 % (40.0-70.0) H 01/29/19 17:46 Seg Neutrophils # 5.3 K/mm3 (1.8-7.7) 01/29/19 17:46 PT 15.5 Sec. (12.2-14.9) H 01/29/19 17:46 INR 1.26 (0.87-1.13) H 01/29/19 17:46 APTT 54.7 Sec. (24.2-36.6) H 01/29/19 17:46 Sodium 136 mmol/L (137-145) L 01/29/19 17:46 Potassium 3.8 mmol/L (3.6-5.0) 01/29/19 17:46 Chloride 99.1 mmol/L (98-107) 01/29/19 17:46 Carbon Dioxide 26 mmol/L (22-30) 01/29/19 17:46 15 mmol/L 01/29/19 17:46 BUN 12 mg/dL (9-20) 01/29/19 17:46 1.1 mg/dL (0.8-1.5) 01/29/19 17:46 Estimated GFR > 60 ml/min 01/29/19 17:46 11 % 01/29/19 17:46 Glucose 135 mg/dL (75-100) H 01/29/19 17:46 Calcium 8.6 mg/dL (8.4-10.2) 01/29/19 17:46 0.80 mg/dL (0.1-1.2) 01/29/19 17:46 AST 10 units/L (5-40) 01/29/19 17:46 ALT 11 units/L (7-56) 01/29/19 17:46 76 units/L (35-129) 01/29/19 17:46 46 units/L (55-170) L 01/29/19 17:46 CK-MB (CK-2) 1.0 ng/mL (0.0-4.0) 01/29/19 17:46 CK-MB (CK-2) Rel Index 2.1 (0-4) 01/29/19 17:46 < 0.010 ng/mL (0.00-0.029) 01/29/19 17:46 7.0 g/dL (6.3-8.2) 01/29/19 17:46 3.4 g/dL (3.9-5) L 01/29/19 17:46 0.9 % 01/29/19 17:46 18 units/L (13-60) 01/29/19 17:46 Yellow (Yellow) 01/29/19 21:43 Clear (Clear) 01/29/19 21:43 6.0 (5.0-7.0) 01/29/19 21:43 Ur Specific [place] 1.018 (1.003-1.030) 01/29/19 21:43 <15 mg/dl mg/dL (Negative) 01/29/19 21:43 Neg mg/dL (Negative) 01/29/19 21:43 Neg mg/dL (Negative) 01/29/19 21:43 Neg (Negative) 01/29/19 21:43 Neg (Negative) 01/29/19 21:43 Neg (Negative) 01/29/19 21:43 < 2.0 mg/dL (<2.0) 01/29/19 21:43 Ur Leukocyte Esterase Neg (Negative) 01/29/19 21:43 1.0 /HPF (0.0-6.0) 01/29/19 21:43 2.0 /HPF (0.0-6.0) 01/29/19 21:43 U Epithel Cells (Auto) < 1.0 /HPF (0-13.0) 01/29/19 21:43 Assessment and Plan Assessment and plan: 83 year old man with history of hypetension,, CAD, hyperlipidemia, BPH comes to the ER for evaluation of abdominal pain x 8days. His CT abdomen shows perforation of sigmoid diverticulitis and inflammation and gas in the appendix. Agree with plan as stated above
[2019-01-29 21:54] LABS: Bilirubin,Urine NEG (Negative); Blood,Urine NEG (Negative); Color,Urine Yellow (Yellow); Protein,Urine <15 mg/dL mg/dL (Negative); Urobilinogen,Urine < 2.0 mg/dL (<2.0)
--- NOTE | 2019-01-29 22:07 | Event Note ---
Date: 01/29/19 Call back was delayed as I never received any messages from the answering service. Dr. Lamb contacted me on my cell phone. I discussed the case with Dr. Lamb. This illness has been going on for more than a week. Pt does not appear ill and VS are ok. Labs are fairly unremarkable. CT shows small dots of free air. Will start with IVF and IV Abx.
[2019-01-29] MEDS: SODIUM CHLORIDE FLUSH SYRINGE 10 ML IV SCH (22:50)
[2019-01-29] MEDS: FLAGYL 500 MG/100 ML 500 MG/100 ML BAG IV SCH (23:34)
[2019-01-29] MEDS: PEPCID IV SCH (23:35)
[2019-01-29] MEDS: NACL 0.9% 1000 ML 1,000 ML IV SCH (23:35)
[2019-01-30] MEDS: MORPHINE IV PRN ×3 (00:39→10:09)
[2019-01-30] MEDS: FLAGYL 500 MG/100 ML 500 MG/100 ML BAG IV SCH ×3 (05:53→22:34)
[2019-01-30] MEDS: LOVENOX SUB-Q SCH (10:02)
[2019-01-30] MEDS: LEVAQUIN 750MG/150ML 750 MG/150 ML BAG IV SCH (10:02)
[2019-01-30] MEDS: SODIUM CHLORIDE FLUSH SYRINGE 10 ML IV SCH ×2 (10:03→22:39)
[2019-01-30] MEDS: PEPCID IV SCH (10:03)
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
[2019-01-30] MEDS ORDERED: NACL 0.9% 1000 ML 1,000 ML IV SCH (12:00)
[2019-01-30] MEDS: TORADOL IV SCH ×2 (12:55→19:48)
[2019-01-30] MEDS ORDERED: NACL 0.9% 1000 ML 1,000 ML IV ONE (13:00)
--- NOTE | 2019-01-30 16:09 | Progress Note ---
Assessment and Plan Assessment and plan: 83-year-old man who presents to the hospital with abdominal pain 1 week which is located in the left lower quadrant Past Medical History: arthritis, CAD, hypertension, hyperlipidemia, other (BPH), GERD, osteoarthritis Acute perforated diverticulitis/sepsis Management per surgery, antibiotics -Patient will need surgical management, cardiology evaluation pending Hypertension meds IV Coronary artery disease Optimize cardiac meds, to be restarted when patient is tolerating by mouth, cardiology consult pending GERD PPI IV for now DVT prophylaxis History Interval history: Review of systems Constitutional:had fever CVS: No chest pain, no orthopnea, no dyspnea on exertion, no pedal edema GI continues to complain of abdominal pain and anorexia Respiratory: no wheezing, no coughing Hospitalist Physical - Physical exam Narrative exam: General.: Appears ill, mild distress HEENT: Moist mucous membranes, extraocular muscles intact, no lymphadenopathy Neck: supple Cardiac: S1-S2 heard Lungs: clear to auscultation bilaterally Abdomen: Tender to exam Extremities: no edema clubbing or cyanosis Skin: no rash or lesions Neurologic: no gross focal deficits Psych: calm, and cooperative - Constitutional Vitals: Temp Pulse Resp BP Pulse Ox 100.8 F H 97 H 18 141/72 97 01/30/19 06:07 01/29/19 23:44 01/29/19 23:44 01/29/19 23:44 01/29/19 23:44 General appearance: Present: no acute distress Results - Labs CBC & Chem 7: 01/29/19 17:46 01/29/19 17:46 Labs: Laboratory Last Values WBC 6.1 K/mm3 (4.5-11.0) 01/29/19 17:46 RBC 4.28 M/mm3 (3.65-5.03) 01/29/19 17:46 Hgb 13.4 gm/dl (11.8-15.2) 01/29/19 17:46 Hct 39.5 % (35.5-45.6) 01/29/19 17:46 MCV 92 fl (84-94) 01/29/19 17:46 MCH 31 pg (28-32) 01/29/19 17:46 MCHC 34 % (32-34) 01/29/19 17:46 RDW 14.3 % (13.2-15.2) 01/29/19 17:46 Plt Count 218 K/mm3 (140-440) 01/29/19 17:46 Lymph % (Auto) 8.3 % (13.4-35.0) L 01/29/19 17:46 [place] % (Auto) 3.6 % (0.0-7.3) 01/29/19 17:46 Eos % (Auto) 0.0 % (0.0-4.3) 01/29/19 17:46 Baso % (Auto) 0.5 % (0.0-1.8) 01/29/19 17:46 Lymph # 0.5 K/mm3 (1.2-5.4) L 01/29/19 17:46 [place] # 0.2 K/mm3 (0.0-0.8) 01/29/19 17:46 Eos # 0.0 K/mm3 (0.0-0.4) 01/29/19 17:46 Baso # 0.0 K/mm3 (0.0-0.1) 01/29/19 17:46 Seg Neutrophils % 87.6 % (40.0-70.0) H 01/29/19 17:46 Seg Neutrophils # 5.3 K/mm3 (1.8-7.7) 01/29/19 17:46 PT 15.5 Sec. (12.2-14.9) H 01/29/19 17:46 INR 1.26 (0.87-1.13) H 01/29/19 17:46 APTT 54.7 Sec. (24.2-36.6) H 01/29/19 17:46 Sodium 136 mmol/L (137-145) L 01/29/19 17:46 Potassium 3.8 mmol/L (3.6-5.0) 01/29/19 17:46 Chloride 99.1 mmol/L (98-107) 01/29/19 17:46 Carbon Dioxide 26 mmol/L (22-30) 01/29/19 17:46 15 mmol/L 01/29/19 17:46 BUN 12 mg/dL (9-20) 01/29/19 17:46 1.1 mg/dL (0.8-1.5) 01/29/19 17:46 Estimated GFR > 60 ml/min 01/29/19 17:46 11 % 01/29/19 17:46 Glucose 135 mg/dL (75-100) H 01/29/19 17:46 Calcium 8.6 mg/dL (8.4-10.2) 01/29/19 17:46 0.80 mg/dL (0.1-1.2) 01/29/19 17:46 AST 10 units/L (5-40) 01/29/19 17:46 ALT 11 units/L (7-56) 01/29/19 17:46 76 units/L (35-129) 01/29/19 17:46 46 units/L (55-170) L 01/29/19 17:46 CK-MB (CK-2) 1.0 ng/mL (0.0-4.0) 01/29/19 17:46 CK-MB (CK-2) Rel Index 2.1 (0-4) 01/29/19 17:46 < 0.010 ng/mL (0.00-0.029) 01/29/19 17:46 7.0 g/dL (6.3-8.2) 01/29/19 17:46 3.4 g/dL (3.9-5) L 01/29/19 17:46 0.9 % 01/29/19 17:46 18 units/L (13-60) 01/29/19 17:46 Yellow (Yellow) 01/29/19 21:43 Clear (Clear) 01/29/19 21:43 6.0 (5.0-7.0) 01/29/19 21:43 Ur Specific [place] 1.018 (1.003-1.030) 01/29/19 21:43 <15 mg/dl mg/dL (Negative) 01/29/19 21:43 Neg mg/dL (Negative) 01/29/19 21:43 Neg mg/dL (Negative) 01/29/19 21:43 Neg (Negative) 01/29/19 21:43 Neg (Negative) 01/29/19 21:43 Neg (Negative) 01/29/19 21:43 < 2.0 mg/dL (<2.0) 01/29/19 21:43 Ur Leukocyte Esterase Neg (Negative) 01/29/19 21:43 1.0 /HPF (0.0-6.0) 01/29/19 21:43 2.0 /HPF (0.0-6.0) 01/29/19 21:43 U Epithel Cells (Auto) < 1.0 /HPF (0-13.0) 01/29/19 21:43 Active Medications - Current Medications Current Medications: Generic Name Dose Route Start Last Admin Trade Name Freq PRN Reason Stop Dose Admin Acetaminophen 650 mg 01/29/19 21:11 Tylenol PO Q4H PRN Pain MILD(1-3)/Fever >100.5/HERNANDEZ Enoxaparin Sodium 40 mg 01/30/19 10:00 01/30/19 10:02 Lovenox SUB-Q 40 mg QDAY [facility] Administration Famotidine 10 mg 01/29/19 22:00 01/30/19 10:03 Pepcid IV 10 mg BID [facility] Administration Sodium Chloride 1,000 mls @ 75 mls/hr 01/29/19 22:00 01/29/19 23:35 Nacl 0.9% 1000 Ml IV 75 mls/hr DIRECT [facility] Administration Levofloxacin/Dextrose 750 mg in 150 mls @ 100 mls/hr 01/30/19 10:00 01/30/19 10:02 Levaquin 750mg/150ml IV 100 mls/hr Q24HR [facility] Administration Protocol Metronidazole 500 mg in 100 mls @ 100 mls/hr 01/29/19 22:00 01/30/19 05:53 Flagyl 500 Mg/100 Ml IV 100 mls/hr Q8HR [facility] Administration Protocol Ketorolac Tromethamine 15 mg 01/30/19 12:00 01/30/19 12:55 Toradol IV 02/04/19 11:59 15 mg Q6HR [facility] Administration Morphine Sulfate 2 mg 01/29/19 21:11 01/30/19 10:09 Morphine IV 2 mg Q4H PRN Administration Pain, Moderate (4-6) Ondansetron HCl 4 mg 01/29/19 21:11 Zofran IV Q8H PRN Nausea And Vomiting Sodium Chloride 10 ml 01/29/19 22:00 01/30/19 10:03 Sodium Chloride Flush Syringe 10 Ml IV 10 ml BID [facility] Administration Sodium Chloride 10 ml 01/29/19 21:11 Sodium Chloride Flush Syringe 10 Ml IV PRN PRN LINE FLUSH
[2019-01-30] MEDS ORDERED: PROTONIX IV SCH (17:00)
[2019-01-30] MEDS: NACL 0.9% 1000 ML 1,000 ML IV SCH (20:00)
[2019-01-30] MEDS: APRESOLINE IV PRN (22:36)
[2019-01-31] MEDS: TORADOL IV SCH ×4 (03:37→23:21)
[2019-01-31] MEDS: APRESOLINE IV PRN ×2 (03:40→08:47)
[2019-01-31 05:21] LABS: Hematocrit 41.7 % (35.5-45.6); Hemoglobin 13.9 gm/dl (11.8-15.2); Mean Corpuscular HGB Conc 33 % (32-34); Mean Corpuscular Volume 93 fl (84-94); Platelet Count 230 K/mm3 (140-440); Red Blood Count 4.51 M/mm3 (3.65-5.03); Red Cell Distribution Width 14.9 % (13.2-15.2)
[2019-01-31 05:32] LABS: BUN/Creatinine Ratio 21; Blood Urea Nitrogen 21 mg/dL (9-20); Calcium 8.7 mg/dL (8.4-10.2); Hemolysis Index 13
[2019-01-31 07:10] LABS: Basophils % (Manual) 0 % (0.0-1.8); Eosinophils % (Manual) 0 % (0.0-4.3); RBC Morphology Normal; Total Cells Counted 100
[2019-01-31 07:11] LABS: Platelet Estimate Consistent w Auto
--- NOTE | 2019-01-31 08:26 | Progress Note ---
Assessment and Plan - Patient Problems (1) Diverticulitis of colon with perforation Current Visit: Yes Status: Acute Qualifiers: Diverticulitis bleeding: without bleeding Qualified Code(s): K57.20 - Diverticulitis of large intestine with perforation and abscess without bleeding Plan to address problem: Pt appears stable. (Initial Assessment - 01/30) At some point, patient will need surgery for this complicated issue. Patient does have a significant infection in the pelvic area, but he does not have an acute abdomen. At this point, would recommend continued resuscitation and IV antibiotics with close monitoring. I have ordered follow-up labs for the morning. I discussed in great detail with him that if he starts to show signs of worsening, then we will move forward with resection and colostomy creation. Patient is familiar with the colostomy as his had it prior to her passing. Our hope is that he responds to the IV antibiotics such that we can set up an elective resection in the near future and hopefully avoid a colostomy bag. All questions were answered. He is naturally overwhelmed, but understands the plan. It may be helpful to have Cardiology do a pre-op assessment in light of the patient's [place] history. As a side note, if we proceed with surgery in the next few days, patient is at higher risk of bleeding complications due to his current use of Plavix. Would hold for now, if possible. Today - Patient reports feeling better. He looks better, but he is still clinically dehydrated. Urine was a very dark color in the container. He remains mildly tachycardic. We will increase his IV fluid rate and order a bolus of IV fluids. The increasing white count I think is now a more accurate representation of his overall status. Initial white count of 6, was probably an error. We will see how it trends from here. Repeat labs in the morning As his bowel function is starting to resume, I will start him on a clear liquid diet. Await cardiology assessment We will order ostomy nurse consult for ostomy marking in case we needed. He asked that I speak with his granddaughter. I answered all of her questions. She was appreciative. We'll follow along. Please call with questions. Time = 10 minutes Subjective Date of service: 01/31/19 Patient Reports: Positive: no new complaints, feels better, pain is less, flatus. Negative: nausea, vomiting Objective Vital Signs - 12hr 01/30/19 01/31/19 01/31/19 22:36 03:31 03:40 Temperature 97.7 F Pulse Rate 102 H 104 H 104 H Respiratory 20 Rate Blood Pressure 186/92 187/103 187/103 O2 Sat by Pulse 99 Oximetry 01/31/19 07:47 Temperature 98.0 F Pulse Rate 103 H Respiratory 20 Rate Blood Pressure 191/103 O2 Sat by Pulse 96 Oximetry - General physical appearance no distress, no pain, other (looks better) - Respiratory normal expansion, normal respiratory effort - Abdomen soft, tender (less so in lower abdomen), bowel sounds hypoactive (few bowel sounds today), distended, guarding (voluntary), not rigid, surgical scars - Integumentary no rash, no growths, no abnormal pigmentation - Psychiatric oriented to time, oriented to person, oriented to place, speech is normal, memory intact - Labs 01/31/19 04:19 01/31/19 04:19 Diabetes panel 01/31/19 Range/Units 04:19 Sodium 140 (137-145) mmol/L Potassium 4.0 (3.6-5.0) mmol/L Chloride 104.3 (98-107) mmol/L Carbon Dioxide 23 (22-30) mmol/L BUN 21 H (9-20) mg/dL Creatinine 1.0 (0.8-1.5) mg/dL Glucose 96 (75-100) mg/dL Calcium 8.7 (8.4-10.2) mg/dL Calcium panel 01/31/19 Range/Units 04:19 Calcium 8.7 (8.4-10.2) mg/dL Pituitary panel 01/31/19 Range/Units 04:19 Sodium 140 (137-145) mmol/L Potassium 4.0 (3.6-5.0) mmol/L Chloride 104.3 (98-107) mmol/L Carbon Dioxide 23 (22-30) mmol/L BUN 21 H (9-20) mg/dL Creatinine 1.0 (0.8-1.5) mg/dL Glucose 96 (75-100) mg/dL Calcium 8.7 (8.4-10.2) mg/dL Adrenal panel 01/31/19 Range/Units 04:19 Sodium 140 (137-145) mmol/L Potassium 4.0 (3.6-5.0) mmol/L Chloride 104.3 (98-107) mmol/L Carbon Dioxide 23 (22-30) mmol/L BUN 21 H (9-20) mg/dL Creatinine 1.0 (0.8-1.5) mg/dL Glucose 96 (75-100) mg/dL Calcium 8.7 (8.4-10.2) mg/dL
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
[2019-01-31] MEDS: BABY ASPIRIN PO SCH (09:44)
[2019-01-31] MEDS: COREG PO SCH ×2 (09:44→21:38)
[2019-01-31] MEDS: LEVAQUIN 750MG/150ML 750 MG/150 ML BAG IV SCH (09:44)
[2019-01-31] MEDS: LOVENOX SUB-Q SCH (09:45)
[2019-01-31] MEDS: SODIUM CHLORIDE FLUSH SYRINGE 10 ML IV SCH ×2 (09:47→21:39)
[2019-01-31] MEDS: PLAVIX PO SCH (09:58)
[2019-01-31] MEDS: IMDUR PO SCH (09:58)
[2019-01-31] MEDS: PROTONIX PO SCH (09:58)
[2019-01-31] MEDS: ZESTRIL PO SCH (09:58)
[2019-01-31] MEDS ORDERED: IMDUR PO SCH (10:00)
[2019-01-31] MEDS ORDERED: NON-FORMULARY (Multivitamin [Multi-Vitamin Daily] 1 EACH) PO SCH (10:00)
[2019-01-31] MEDS: NACL 0.9% 1000 ML 1,000 ML IV SCH ×2 (10:12→13:49)
[2019-01-31] MEDS: THERAGRAN Tab PO SCH (11:00)
--- NOTE | 2019-01-31 12:23 | Progress Note ---
Assessment and Plan Assessment and plan: 83-year-old man who presents to the hospital with abdominal pain 1 week which is located in the left lower quadrant Past Medical History: arthritis, CAD, hypertension, hyperlipidemia, other (BPH), GERD, osteoarthritis Acute perforated diverticulitis/sepsis Management per surgery, antibiotics -Patient may need surgical management, cardiology evaluation pending ADAT per GS, currently on clear liquids. Hypertension with urgency meds IV, add PO meds Coronary artery disease Optimize cardiac meds, to be restarted when patient is tolerating by mouth, cardiology consult pending GERD PPI IV for now DVT prophylaxis History Interval history: Review of systems Constitutional:had fever CVS: No chest pain, no orthopnea, no dyspnea on exertion, no pedal edema GI no complain of abdominal pain or anorexia Respiratory: no wheezing, no coughing Hospitalist Physical - Physical exam Narrative exam: General.: Appears ill, mild distress HEENT: Moist mucous membranes, extraocular muscles intact, no lymphadenopathy Neck: supple Cardiac: S1-S2 heard Lungs: clear to auscultation bilaterally Abdomen: non Tender to exam Extremities: no edema clubbing or cyanosis Skin: no rash or lesions Neurologic: no gross focal deficits Psych: calm, and cooperative - Constitutional Vitals: Temp Pulse Resp BP Pulse Ox 98.0 F 106 H 20 156/84 96 01/31/19 07:47 01/31/19 09:58 01/31/19 07:47 01/31/19 09:58 01/31/19 09:43 General appearance: Present: no acute distress Results - Labs CBC & Chem 7: 02/01/19 05:11 02/01/19 05:11 Labs: Laboratory Last Values WBC 18.5 K/mm3 (4.5-11.0) H 01/31/19 04:19 RBC 4.51 M/mm3 (3.65-5.03) 01/31/19 04:19 Hgb 13.9 gm/dl (11.8-15.2) 01/31/19 04:19 Hct 41.7 % (35.5-45.6) 01/31/19 04:19 MCV 93 fl (84-94) 01/31/19 04:19 MCH 31 pg (28-32) 01/31/19 04:19 MCHC 33 % (32-34) 01/31/19 04:19 RDW 14.9 % (13.2-15.2) 01/31/19 04:19 Plt Count 230 K/mm3 (140-440) 01/31/19 04:19 Lymph % (Auto) 8.3 % (13.4-35.0) L 01/29/19 17:46 [place] % (Auto) 3.6 % (0.0-7.3) 01/29/19 17:46 Eos % (Auto) 0.0 % (0.0-4.3) 01/29/19 17:46 Baso % (Auto) 0.5 % (0.0-1.8) 01/29/19 17:46 Lymph # 0.5 K/mm3 (1.2-5.4) L 01/29/19 17:46 [place] # 0.2 K/mm3 (0.0-0.8) 01/29/19 17:46 Eos # 0.0 K/mm3 (0.0-0.4) 01/29/19 17:46 Baso # 0.0 K/mm3 (0.0-0.1) 01/29/19 17:46 Add Manual Diff Complete 01/31/19 04:19 Total Counted 100 01/31/19 04:19 Seg Neutrophils % Medication Care Manager 01/31/19 04:19 Seg Neuts % (Manual) 95.0 % (40.0-70.0) H 01/31/19 04:19 0 % 01/31/19 04:19 3.0 % (13.4-35.0) L 01/31/19 04:19 Reactive Lymphs % (Man) 0 % 01/31/19 04:19 2.0 % (0.0-7.3) 01/31/19 04:19 0 % (0.0-4.3) 01/31/19 04:19 0 % (0.0-1.8) 01/31/19 04:19 0 % 01/31/19 04:19 0 % 01/31/19 04:19 0 % 01/31/19 04:19 0 % 01/31/19 04:19 Nucleated RBC % Not Reportable 01/31/19 04:19 Seg Neutrophils # 5.3 K/mm3 (1.8-7.7) 01/29/19 17:46 Seg Neutrophils # Man 17.6 K/mm3 (1.8-7.7) H 01/31/19 04:19 Band Neutrophils # 0.0 K/mm3 01/31/19 04:19 0.6 K/mm3 (1.2-5.4) L 01/31/19 04:19 Abs React Lymphs (Man) 0.0 K/mm3 01/31/19 04:19 0.4 K/mm3 (0.0-0.8) 01/31/19 04:19 0.0 K/mm3 (0.0-0.4) 01/31/19 04:19 0.0 K/mm3 (0.0-0.1) 01/31/19 04:19 0.0 K/mm3 01/31/19 04:19 0.0 K/mm3 01/31/19 04:19 0.0 K/mm3 01/31/19 04:19 Blast Cells # 0.0 K/mm3 01/31/19 04:19 WBC Morphology Not Reportable 01/31/19 04:19 Hypersegmented Neuts Not Reportable 01/31/19 04:19 Hyposegmented Neuts Not Reportable 01/31/19 04:19 Hypogranular Neuts Not Reportable 01/31/19 04:19 Not Reportable 01/31/19 04:19 Not Reportable 01/31/19 04:19 Not Reportable 01/31/19 04:19 Not Reportable 01/31/19 04:19 Not Reportable 01/31/19 04:19 Not Reportable 01/31/19 04:19 Consistent w auto 01/31/19 04:19 Not Reportable 01/31/19 04:19 Plt Clumps, EDTA Not Reportable 01/31/19 04:19 Not Reportable 01/31/19 04:19 Not Reportable 01/31/19 04:19 Not Reportable 01/31/19 04:19 Plt Morphology Comment Not Reportable 01/31/19 04:19 RBC Morphology Normal 01/31/19 04:19 Dimorphic RBCs Not Reportable 01/31/19 04:19 Not Reportable 01/31/19 04:19 Not Reportable 01/31/19 04:19 Not Reportable 01/31/19 04:19 Not Reportable 01/31/19 04:19 Not Reportable 01/31/19 04:19 Not Reportable 01/31/19 04:19 Not Reportable 01/31/19 04:19 Not Reportable 01/31/19 04:19 Not Reportable 01/31/19 04:19 Not Reportable 01/31/19 04:19 Not Reportable 01/31/19 04:19 Not Reportable 01/31/19 04:19 Not Reportable 01/31/19 04:19 Not Reportable 01/31/19 04:19 Not Reportable 01/31/19 04:19 Not Reportable 01/31/19 04:19 Not Reportable 01/31/19 04:19 Not Reportable 01/31/19 04:19 Not Reportable 01/31/19 04:19 Acanthocytes (Spur) Not Reportable 01/31/19 04:19 Rouleaux Not Reportable 01/31/19 04:19 Not Reportable 01/31/19 04:19 Not Reportable 01/31/19 04:19 Not Reportable 01/31/19 04:19 Not Reportable 01/31/19 04:19 Hem Pathologist Commnt No 01/31/19 04:19 PT 15.5 Sec. (12.2-14.9) H 01/29/19 17:46 INR 1.26 (0.87-1.13) H 01/29/19 17:46 APTT 54.7 Sec. (24.2-36.6) H 01/29/19 17:46 Sodium 140 mmol/L (137-145) 01/31/19 04:19 Potassium 4.0 mmol/L (3.6-5.0) 01/31/19 04:19 Chloride 104.3 mmol/L (98-107) 01/31/19 04:19 Carbon Dioxide 23 mmol/L (22-30) 01/31/19 04:19 17 mmol/L 01/31/19 04:19 BUN 21 mg/dL (9-20) H 01/31/19 04:19 1.0 mg/dL (0.8-1.5) 01/31/19 04:19 Estimated GFR > 60 ml/min 01/31/19 04:19 21 % 01/31/19 04:19 Glucose 96 mg/dL (75-100) 01/31/19 04:19 Calcium 8.7 mg/dL (8.4-10.2) 01/31/19 04:19 0.80 mg/dL (0.1-1.2) 01/29/19 17:46 AST 10 units/L (5-40) 01/29/19 17:46 ALT 11 units/L (7-56) 01/29/19 17:46 76 units/L (35-129) 01/29/19 17:46 46 units/L (55-170) L 01/29/19 17:46 CK-MB (CK-2) 1.0 ng/mL (0.0-4.0) 01/29/19 17:46 CK-MB (CK-2) Rel Index 2.1 (0-4) 01/29/19 17:46 < 0.010 ng/mL (0.00-0.029) 01/29/19 17:46 7.0 g/dL (6.3-8.2) 01/29/19 17:46 3.4 g/dL (3.9-5) L 01/29/19 17:46 0.9 % 01/29/19 17:46 18 units/L (13-60) 01/29/19 17:46 Yellow (Yellow) 01/29/19 21:43 Clear (Clear) 01/29/19 21:43 6.0 (5.0-7.0) 01/29/19 21:43 Ur Specific [place] 1.018 (1.003-1.030) 01/29/19 21:43 <15 mg/dl mg/dL (Negative) 01/29/19 21:43 Neg mg/dL (Negative) 01/29/19 21:43 Neg mg/dL (Negative) 01/29/19 21:43 Neg (Negative) 01/29/19 21:43 Neg (Negative) 01/29/19 21:43 Neg (Negative) 01/29/19 21:43 < 2.0 mg/dL (<2.0) 01/29/19 21:43 Ur Leukocyte Esterase Neg (Negative) 01/29/19 21:43 1.0 /HPF (0.0-6.0) 01/29/19 21:43 2.0 /HPF (0.0-6.0) 01/29/19 21:43 U Epithel Cells (Auto) < 1.0 /HPF (0-13.0) 01/29/19 21:43 Active Medications - Current Medications Current Medications: Generic Name Dose Route Start Last Admin Trade Name Freq PRN Reason Stop Dose Admin Acetaminophen 650 mg 01/29/19 21:11 Tylenol PO Q4H PRN Pain MILD(1-3)/Fever >100.5/HERNANDEZ Aspirin 81 mg 01/31/19 10:00 01/31/19 09:44 Baby Aspirin PO 81 mg QDAY [facility] Administration Atorvastatin Calcium 80 mg 01/31/19 22:00 Lipitor PO QHS [facility] Carvedilol 12.5 mg 01/31/19 10:00 01/31/19 09:44 Coreg PO 12.5 mg BID [facility] Administration Clopidogrel Bisulfate 75 mg 01/31/19 10:00 01/31/19 09:58 Plavix PO 75 mg DAILY [facility] Administration Enoxaparin Sodium 40 mg 01/30/19 10:00 01/31/19 09:45 Lovenox SUB-Q 40 mg QDAY [facility] Administration Finasteride 5 mg 01/31/19 22:00 Proscar PO QHS [facility] Hydralazine HCl 10 mg 01/30/19 16:09 01/31/19 08:47 Apresoline IV 10 mg Q4H PRN Administration BP >160/100 Sodium Chloride 1,000 mls @ 125 mls/hr 01/29/19 22:00 01/30/19 20:00 Nacl 0.9% 1000 Ml IV 75 mls/hr DIRECT [facility] Administration Levofloxacin/Dextrose 750 mg in 150 mls @ 100 mls/hr 01/30/19 10:00 01/31/19 09:44 Levaquin 750mg/150ml IV 100 mls/hr Q24HR [facility] Administration Protocol Metronidazole 500 mg in 100 mls @ 100 mls/hr 01/29/19 22:00 01/30/19 22:34 Flagyl 500 Mg/100 Ml IV 100 mls/hr Q8HR [facility] Administration Protocol Sodium Chloride 1,000 mls @ 999 mls/hr 01/31/19 09:00 01/31/19 10:12 Nacl 0.9% 1000 Ml IV 02/01/19 10:01 999 mls/hr ONCE [facility] Administration As Directed Isosorbide Mononitrate 60 mg 01/31/19 10:00 01/31/19 09:58 Imdur PO 60 mg QDAY [facility] Administration Ketorolac Tromethamine 15 mg 01/30/19 12:00 01/31/19 03:37 Toradol IV 02/04/19 11:59 15 mg Q6HR [facility] Administration Lisinopril 10 mg 01/31/19 10:00 01/31/19 09:58 Zestril PO 10 mg QDAY [facility] Administration Morphine Sulfate 2 mg 01/29/19 21:11 01/30/19 10:09 Morphine IV 2 mg Q4H PRN Administration Pain, Moderate (4-6) Multivitamins 1 each 01/31/19 10:00 Theragran Tab PO DAILY [facility] Ondansetron HCl 4 mg 01/29/19 21:11 Zofran IV Q8H PRN Nausea And Vomiting Pantoprazole Sodium 40 mg 01/31/19 10:00 01/31/19 09:58 Protonix PO 40 mg QDAY [facility] Administration Sodium Chloride 10 ml 01/29/19 22:00 01/31/19 09:47 Sodium Chloride Flush Syringe 10 Ml IV 10 ml BID [facility] Administration Sodium Chloride 10 ml 01/29/19 21:11 Sodium Chloride Flush Syringe 10 Ml IV PRN PRN LINE FLUSH Tamsulosin HCl 0.4 mg 01/31/19 22:00 Flomax PO QHS [facility]
[2019-01-31] MEDS: FLAGYL 500 MG/100 ML 500 MG/100 ML BAG IV SCH ×3 (13:54→21:39)
[2019-01-31] MEDS: PROSCAR PO SCH (21:38)
[2019-01-31] MEDS: FLOMAX PO SCH (21:38)
[2019-01-31] MEDS ORDERED: NON-FORMULARY (Atorvastatin [Lipitor] 80 MG) PO SCH (22:00)
[2019-02-01] MEDS: NACL 0.9% 1000 ML 1,000 ML IV SCH ×2 (01:19→10:11)
[2019-02-01] MEDS: FLAGYL 500 MG/100 ML 500 MG/100 ML BAG IV SCH ×3 (05:16→22:18)
[2019-02-01] MEDS: TORADOL IV SCH ×2 (05:17→14:57)
[2019-02-01 06:19] LABS: Hemoglobin 12.1 gm/dl (11.8-15.2); Mean Corpuscular HGB Conc 33 % (32-34); Mean Corpuscular Volume 95 fl (84-94); Platelet Count 190 K/mm3 (140-440); Red Cell Distribution Width 15.1 % (13.2-15.2)
[2019-02-01 06:40] LABS: BUN/Creatinine Ratio 19; Blood Urea Nitrogen 19 mg/dL (9-20); Calcium 7.6 mg/dL (8.4-10.2); Hemolysis Index 22
--- NOTE | 2019-02-01 08:40 | Progress Note ---
Assessment and Plan Severe abdominal pain CTA reports a perforated sigmoid diverticulitis Pre-op Cardiac risk assessment Hypertension Hx of CAD Normal MPI 06/2018. LVEF 45-50% by echo 06/2018. Patient is planned for elective resection in the near future. Further perioperative recommendations will be made if strategy changes surgical management. Continue medical therapy for coronary artery disease and chronic hypertension. Otherwise, conservative cardiac management. Subjective Date of service: 02/01/19 Interval history: Patient is OOB, ambulating in the room. He has no cardiac complaints. Objective Vital Signs Temp Pulse Resp BP BP Pulse Ox 02/01/19 03:00 97.8 F 88 20 156/75 95 01/31/19 21:38 92 H 174/96 01/31/19 20:59 92 H 01/31/19 20:31 98.3 F 92 H 18 174/96 96 01/31/19 13:17 98.0 F 90 20 132/68 98 01/31/19 09:58 106 H 156/84 01/31/19 09:44 106 H 156/84 01/31/19 09:43 106 H 156/84 96 01/31/19 08:47 103 H 191/103 - Physical Examination General: No Apparent Distress HEENT: Positive: PERRL Neck: Positive: trachea midline Cardiac: Positive: Reg Rate and Rhythm Lungs: Positive: Decreased Breath Sounds Neuro: Positive: Grossly Intact Extremities: Absent: edema - Labs and Meds CBC 02/01/19 Range/Units 05:11 WBC 17.6 H (4.5-11.0) K/mm3 RBC 3.90 (3.65-5.03) M/mm3 Hgb 12.1 (11.8-15.2) gm/dl Hct 37.0 (35.5-45.6) % Plt Count 190 (140-440) K/mm3 Comprehensive Metabolic Panel 02/01/19 Range/Units 05:11 Sodium 141 (137-145) mmol/L Potassium 3.8 (3.6-5.0) mmol/L Chloride 110.3 H (98-107) mmol/L Carbon Dioxide 21 L (22-30) mmol/L BUN 19 (9-20) mg/dL Creatinine 1.0 (0.8-1.5) mg/dL Glucose 102 H (75-100) mg/dL Calcium 7.6 L (8.4-10.2) mg/dL
--- NOTE | 2019-02-01 09:18 | Progress Note ---
Assessment and Plan - Patient Problems (1) Diverticulitis of colon with perforation Current Visit: Yes Status: Acute Qualifiers: Diverticulitis bleeding: without bleeding Qualified Code(s): K57.20 - Diverticulitis of large intestine with perforation and abscess without bleeding Plan to address problem: Pt appears stable. (Initial Assessment - 01/30) At some point, patient will need surgery for this complicated issue. Patient does have a significant infection in the pelvic area, but he does not have an acute abdomen. At this point, would recommend continued resuscitation and IV antibiotics with close monitoring. I have ordered follow-up labs for the morning. I discussed in great detail with him that if he starts to show signs of worsening, then we will move forward with resection and colostomy creation. Patient is familiar with the colostomy as his had it prior to her passing. Our hope is that he responds to the IV antibiotics such that we can set up an elective resection in the near future and hopefully avoid a colostomy bag. All questions were answered. He is naturally overwhelmed, but understands the plan. It may be helpful to have Cardiology do a pre-op assessment in light of the patient's CA history. As a side note, if we proceed with surgery in the next few days, patient is at higher risk of bleeding complications due to his current use of Plavix. Would hold for now, if possible. Today - Patient reports feeling better. He looks better. Exam is much improved. Urine is of normal color now. Will advance to full liquid diet. The leukocytosis appears stable this AM. Appreciate Cards consult. We will order ostomy nurse consult for ostomy marking in case we needed. I have decreased the IVF. Would consider d/c of IVF now that he is tolerating clears. Looks like he will be successful with conservative management. Will need C-scope as an out-pt if he has not had one recently. Then, we will see him in the office after 4-6 weeks to start planning surgery. Would need to know if we can hold plavix for 5 days before surgery. We'll follow along. Please call with questions. Time = 10 minutes Subjective Date of service: 02/01/19 Patient Reports: Positive: feels better, pain is less, tolerating liquids well, flatus, bowel movement. Negative: nausea, vomiting Objective Vital Signs - 12hr 01/31/19 02/01/19 21:38 03:00 Temperature 97.8 F Pulse Rate 92 H 88 Respiratory 20 Rate Blood Pressure 174/96 Blood Pressure 156/75 [Right] O2 Sat by Pulse 95 Oximetry - General physical appearance no distress, no pain, other (sitting at side of bed having breakfast) - Respiratory normal expansion, normal respiratory effort - Abdomen soft, tender (much less than before!), distended (minimal), not guarding, not rigid - Integumentary no rash, no growths, no abnormal pigmentation - Psychiatric oriented to time, oriented to person, oriented to place, speech is normal, memory intact - Labs 02/01/19 05:11 02/01/19 05:11 Diabetes panel 02/01/19 Range/Units 05:11 Sodium 141 (137-145) mmol/L Potassium 3.8 (3.6-5.0) mmol/L Chloride 110.3 H (98-107) mmol/L Carbon Dioxide 21 L (22-30) mmol/L BUN 19 (9-20) mg/dL Creatinine 1.0 (0.8-1.5) mg/dL Glucose 102 H (75-100) mg/dL Calcium 7.6 L (8.4-10.2) mg/dL Calcium panel 02/01/19 Range/Units 05:11 Calcium 7.6 L (8.4-10.2) mg/dL Pituitary panel 02/01/19 Range/Units 05:11 Sodium 141 (137-145) mmol/L Potassium 3.8 (3.6-5.0) mmol/L Chloride 110.3 H (98-107) mmol/L Carbon Dioxide 21 L (22-30) mmol/L BUN 19 (9-20) mg/dL Creatinine 1.0 (0.8-1.5) mg/dL Glucose 102 H (75-100) mg/dL Calcium 7.6 L (8.4-10.2) mg/dL Adrenal panel 02/01/19 Range/Units 05:11 Sodium 141 (137-145) mmol/L Potassium 3.8 (3.6-5.0) mmol/L Chloride 110.3 H (98-107) mmol/L Carbon Dioxide 21 L (22-30) mmol/L BUN 19 (9-20) mg/dL Creatinine 1.0 (0.8-1.5) mg/dL Glucose 102 H (75-100) mg/dL Calcium 7.6 L (8.4-10.2) mg/dL
[2019-02-01] MEDS: COREG PO SCH ×2 (10:12→22:17)
[2019-02-01] MEDS: PLAVIX PO SCH (10:12)
[2019-02-01] MEDS: LOVENOX SUB-Q SCH (10:12)
[2019-02-01] MEDS: SODIUM CHLORIDE FLUSH SYRINGE 10 ML IV SCH ×2 (10:12→22:18)
[2019-02-01] MEDS: BABY ASPIRIN PO SCH (10:13)
[2019-02-01] MEDS: IMDUR PO SCH (10:13)
[2019-02-01] MEDS: ZESTRIL PO SCH (10:13)
[2019-02-01] MEDS: PROTONIX PO SCH (10:13)
[2019-02-01] MEDS: THERAGRAN Tab PO SCH (10:14)
[2019-02-01] MEDS: LEVAQUIN 750MG/150ML 750 MG/150 ML BAG IV SCH (10:14)
[2019-02-01 10:17] LABS: Basophils % (Manual) 0 % (0.0-1.8); Eosinophils % (Manual) 0 % (0.0-4.3); Monocytes % (Manual) 0 % (0.0-7.3); Total Cells Counted 100
[2019-02-01 10:18] LABS: Anisocytosis 1+; Burr Cells 1+; Platelet Estimate Consistent w Auto; Poikilocytosis 1+
--- NOTE | 2019-02-01 12:54 | Progress Note ---
Assessment and Plan Assessment and plan: 83-year-old man who presents to the hospital with abdominal pain 1 week which is located in the left lower quadrant Past Medical History: arthritis, CAD, hypertension, hyperlipidemia, other (BPH), GERD, osteoarthritis Acute perforated diverticulitis/sepsis Management per surgery, antibiotics -Patient improved with conservative management -Tolerated diet -DC IV fluids Hypertension with urgency - Continue all medications, monitor closely and adjust as needed Coronary artery disease - Continue home medications GERD - continue Protonix DVT prophylaxis History Interval history: Patient was seen and evaluated this morning, patient didn't have any complaints. He tolerated diet. Hospitalist Physical - Physical exam Narrative exam: Not in cardiopulmonary distress. The patient appeared well nourished and normally developed. Vital signs as documented. Head exam is unremarkable. No scleral icterus . Neck is without jugular venous distension, thyromegaly, or carotid bruits. Lungs are clear to auscultation. Cardiac exam reveals regular rate and Rhythm. First and second heart sounds normal. No murmurs, rubs or gallops. Abdominal exam reveals mild diffuse abdominal tenderness. Extremities are nonedematous and both femoral and pedal pulses are normal. PARTS PROFESSIONAL: Alert and oriented 3. No focal weakness. - Constitutional Vitals: Temp Pulse Resp BP Pulse Ox 97.9 F 89 18 176/85 95 02/01/19 08:00 02/01/19 08:00 02/01/19 08:00 02/01/19 10:12 02/01/19 03:00 General appearance: Present: no acute distress Results - Labs CBC & Chem 7: 02/01/19 05:11 02/01/19 05:11 Labs: Laboratory Last Values WBC 17.6 K/mm3 (4.5-11.0) H 02/01/19 05:11 RBC 3.90 M/mm3 (3.65-5.03) 02/01/19 05:11 Hgb 12.1 gm/dl (11.8-15.2) 02/01/19 05:11 Hct 37.0 % (35.5-45.6) 02/01/19 05:11 MCV 95 fl (84-94) H 02/01/19 05:11 MCH 31 pg (28-32) 02/01/19 05:11 MCHC 33 % (32-34) 02/01/19 05:11 RDW 15.1 % (13.2-15.2) 02/01/19 05:11 Plt Count 190 K/mm3 (140-440) 02/01/19 05:11 Lymph % (Auto) 8.3 % (13.4-35.0) L 01/29/19 17:46 [place] % (Auto) 3.6 % (0.0-7.3) 01/29/19 17:46 Eos % (Auto) 0.0 % (0.0-4.3) 01/29/19 17:46 Baso % (Auto) 0.5 % (0.0-1.8) 01/29/19 17:46 Lymph # 0.5 K/mm3 (1.2-5.4) L 01/29/19 17:46 [place] # 0.2 K/mm3 (0.0-0.8) 01/29/19 17:46 Eos # 0.0 K/mm3 (0.0-0.4) 01/29/19 17:46 Baso # 0.0 K/mm3 (0.0-0.1) 01/29/19 17:46 Add Manual Diff Complete 02/01/19 05:11 Total Counted 100 02/01/19 05:11 Seg Neutrophils % Fixing Machine Operator 02/01/19 05:11 Seg Neuts % (Manual) 95.0 % (40.0-70.0) H 02/01/19 05:11 0 % 02/01/19 05:11 5.0 % (13.4-35.0) L 02/01/19 05:11 Reactive Lymphs % (Man) 0 % 02/01/19 05:11 0 % (0.0-7.3) 02/01/19 05:11 0 % (0.0-4.3) 02/01/19 05:11 0 % (0.0-1.8) 02/01/19 05:11 0 % 02/01/19 05:11 0 % 02/01/19 05:11 0 % 02/01/19 05:11 0 % 02/01/19 05:11 Nucleated RBC % Not Reportable 02/01/19 05:11 Seg Neutrophils # 5.3 K/mm3 (1.8-7.7) 01/29/19 17:46 Seg Neutrophils # Man 16.7 K/mm3 (1.8-7.7) H 02/01/19 05:11 Band Neutrophils # 0.0 K/mm3 02/01/19 05:11 0.9 K/mm3 (1.2-5.4) L 02/01/19 05:11 Abs React Lymphs (Man) 0.0 K/mm3 02/01/19 05:11 0.0 K/mm3 (0.0-0.8) 02/01/19 05:11 0.0 K/mm3 (0.0-0.4) 02/01/19 05:11 0.0 K/mm3 (0.0-0.1) 02/01/19 05:11 0.0 K/mm3 02/01/19 05:11 0.0 K/mm3 02/01/19 05:11 0.0 K/mm3 02/01/19 05:11 Blast Cells # 0.0 K/mm3 02/01/19 05:11 WBC Morphology Not Reportable 02/01/19 05:11 Hypersegmented Neuts Not Reportable 02/01/19 05:11 Hyposegmented Neuts Not Reportable 02/01/19 05:11 Hypogranular Neuts Not Reportable 02/01/19 05:11 Not Reportable 02/01/19 05:11 Not Reportable 02/01/19 05:11 Not Reportable 02/01/19 05:11 Not Reportable 02/01/19 05:11 Not Reportable 02/01/19 05:11 Not Reportable 02/01/19 05:11 Consistent w auto 02/01/19 05:11 Not Reportable 02/01/19 05:11 Plt Clumps, EDTA Not Reportable 02/01/19 05:11 Not Reportable 02/01/19 05:11 Not Reportable 02/01/19 05:11 Not Reportable 02/01/19 05:11 Plt Morphology Comment Not Reportable 02/01/19 05:11 RBC Morphology Not Reportable 02/01/19 05:11 Dimorphic RBCs Not Reportable 02/01/19 05:11 Not Reportable 02/01/19 05:11 Not Reportable 02/01/19 05:11 1+ 02/01/19 05:11 1+ 02/01/19 05:11 Not Reportable 02/01/19 05:11 Not Reportable 02/01/19 05:11 Not Reportable 02/01/19 05:11 Not Reportable 02/01/19 05:11 Not Reportable 02/01/19 05:11 Not Reportable 02/01/19 05:11 Not Reportable 02/01/19 05:11 Not Reportable 02/01/19 05:11 Not Reportable 02/01/19 05:11 Not Reportable 02/01/19 05:11 Not Reportable 02/01/19 05:11 1+ 02/01/19 05:11 Not Reportable 02/01/19 05:11 Not Reportable 02/01/19 05:11 Not Reportable 02/01/19 05:11 Acanthocytes (Spur) Not Reportable 02/01/19 05:11 Rouleaux Not Reportable 02/01/19 05:11 Not Reportable 02/01/19 05:11 Not Reportable 02/01/19 05:11 Not Reportable 02/01/19 05:11 Not Reportable 02/01/19 05:11 Hem Pathologist Commnt No 02/01/19 05:11 PT 15.5 Sec. (12.2-14.9) H 01/29/19 17:46 INR 1.26 (0.87-1.13) H 01/29/19 17:46 APTT 54.7 Sec. (24.2-36.6) H 01/29/19 17:46 Sodium 141 mmol/L (137-145) 02/01/19 05:11 Potassium 3.8 mmol/L (3.6-5.0) 02/01/19 05:11 Chloride 110.3 mmol/L (98-107) H 02/01/19 05:11 Carbon Dioxide 21 mmol/L (22-30) L 02/01/19 05:11 14 mmol/L 02/01/19 05:11 BUN 19 mg/dL (9-20) 02/01/19 05:11 1.0 mg/dL (0.8-1.5) 02/01/19 05:11 Estimated GFR > 60 ml/min 02/01/19 05:11 19 % 02/01/19 05:11 Glucose 102 mg/dL (75-100) H 02/01/19 05:11 Calcium 7.6 mg/dL (8.4-10.2) L 02/01/19 05:11 0.80 mg/dL (0.1-1.2) 01/29/19 17:46 AST 10 units/L (5-40) 01/29/19 17:46 ALT 11 units/L (7-56) 01/29/19 17:46 76 units/L (35-129) 01/29/19 17:46 46 units/L (55-170) L 01/29/19 17:46 CK-MB (CK-2) 1.0 ng/mL (0.0-4.0) 01/29/19 17:46 CK-MB (CK-2) Rel Index 2.1 (0-4) 01/29/19 17:46 < 0.010 ng/mL (0.00-0.029) 01/29/19 17:46 7.0 g/dL (6.3-8.2) 01/29/19 17:46 3.4 g/dL (3.9-5) L 01/29/19 17:46 0.9 % 01/29/19 17:46 18 units/L (13-60) 01/29/19 17:46 Yellow (Yellow) 01/29/19 21:43 Clear (Clear) 01/29/19 21:43 6.0 (5.0-7.0) 01/29/19 21:43 Ur Specific [place] 1.018 (1.003-1.030) 01/29/19 21:43 <15 mg/dl mg/dL (Negative) 01/29/19 21:43 Neg mg/dL (Negative) 01/29/19 21:43 Neg mg/dL (Negative) 01/29/19 21:43 Neg (Negative) 01/29/19 21:43 Neg (Negative) 01/29/19 21:43 Neg (Negative) 01/29/19 21:43 < 2.0 mg/dL (<2.0) 01/29/19 21:43 Ur Leukocyte Esterase Neg (Negative) 01/29/19 21:43 1.0 /HPF (0.0-6.0) 01/29/19 21:43 2.0 /HPF (0.0-6.0) 01/29/19 21:43 U Epithel Cells (Auto) < 1.0 /HPF (0-13.0) 01/29/19 21:43 Active Medications - Current Medications Current Medications: Generic Name Dose Route Start Last Admin Trade Name Freq PRN Reason Stop Dose Admin Acetaminophen 650 mg 01/29/19 21:11 Tylenol PO Q4H PRN Pain MILD(1-3)/Fever >100.5/HERNANDEZ Aspirin 81 mg 01/31/19 10:00 02/01/19 10:13 Baby Aspirin PO 81 mg QDAY CHATO Administration Atorvastatin Calcium 80 mg 01/31/19 22:00 01/31/19 21:38 Lipitor PO 80 mg QHS CHATO Administration Carvedilol 12.5 mg 01/31/19 10:00 02/01/19 10:12 Coreg PO 12.5 mg BID CHATO Administration Clopidogrel Bisulfate 75 mg 01/31/19 10:00 02/01/19 10:12 Plavix PO 75 mg DAILY CHATO Administration Enoxaparin Sodium 40 mg 01/30/19 10:00 02/01/19 10:12 Lovenox SUB-Q 40 mg QDAY CHATO Administration Finasteride 5 mg 01/31/19 22:00 01/31/19 21:38 Proscar PO 5 mg QHS CHATO Administration Hydralazine HCl 10 mg 01/30/19 16:09 01/31/19 08:47 Apresoline IV 10 mg Q4H PRN Administration BP >160/100 Sodium Chloride 1,000 mls @ 75 mls/hr 01/29/19 22:00 02/01/19 10:11 Nacl 0.9% 1000 Ml IV 75 mls/hr DIRECT CHATO Administration Levofloxacin/Dextrose 750 mg in 150 mls @ 100 mls/hr 01/30/19 10:00 02/01/19 10:14 Levaquin 750mg/150ml IV 100 mls/hr Q24HR CHATO Administration Protocol Metronidazole 500 mg in 100 mls @ 100 mls/hr 01/29/19 22:00 02/01/19 05:16 Flagyl 500 Mg/100 Ml IV 100 mls/hr Q8HR CHATO Administration Protocol Isosorbide Mononitrate 60 mg 01/31/19 10:00 02/01/19 10:13 Imdur PO 60 mg QDAY CHATO Administration Ketorolac Tromethamine 15 mg 01/30/19 12:00 02/01/19 05:17 Toradol IV 02/04/19 11:59 15 mg Q6HR CHATO Administration Lisinopril 10 mg 01/31/19 10:00 02/01/19 10:13 Zestril PO 10 mg QDAY CHATO Administration Morphine Sulfate 2 mg 01/29/19 21:11 01/30/19 10:09 Morphine IV 2 mg Q4H PRN Administration Pain, Moderate (4-6) Multivitamins 1 each 01/31/19 10:00 02/01/19 10:14 Theragran Tab PO 1 each DAILY CHATO Administration Ondansetron HCl 4 mg 01/29/19 21:11 Zofran IV Q8H PRN Nausea And Vomiting Pantoprazole Sodium 40 mg 01/31/19 10:00 02/01/19 10:13 Protonix PO 40 mg QDAY CHATO Administration Sodium Chloride 10 ml 01/29/19 22:00 02/01/19 10:12 Sodium Chloride Flush Syringe 10 Ml IV 10 ml BID CHATO Administration Sodium Chloride 10 ml 01/29/19 21:11 Sodium Chloride Flush Syringe 10 Ml IV PRN PRN LINE FLUSH Tamsulosin HCl 0.4 mg 01/31/19 22:00 01/31/19 21:38 Flomax PO 0.4 mg QHS CHATO Administration
[2019-02-01] MEDS: FLOMAX PO SCH (22:16)
[2019-02-01] MEDS: PROSCAR PO SCH (22:17)
[2019-02-01] MEDS: APRESOLINE IV PRN (22:28)
[2019-02-02] MEDS: TORADOL IV SCH ×4 (00:54→17:50)
[2019-02-02] MEDS: APRESOLINE IV PRN (02:37)
[2019-02-02] MEDS: MORPHINE IV PRN (04:00)
[2019-02-02] MEDS ORDERED: PROVENTIL IH ONE (04:41)
[2019-02-02] MEDS: PROVENTIL IH SCH ×6 (04:51→23:38)
--- NOTE | 2019-02-02 05:15 | XRay Report ---
CHEST 1 VIEW INDICATION: sob, wheezing. COMPARISON: 07/17/2018 FINDINGS: Support devices: None. Heart: Within normal limits. Lungs/Pleura: Mild bilateral central peribronchial thickening, likely reactive. No consolidation or e ffusion. Additional findings: None. IMPRESSION: 1. Pulmonary findings as above. Signer Name: Herminio Johnson MD Signed: 02/02/2019 5:10 AM Workstation Name: [id number]
[2019-02-02] MEDS: FLAGYL 500 MG/100 ML 500 MG/100 ML BAG IV SCH ×3 (05:21→22:28)
[2019-02-02 06:17] LABS: Basophils % (Auto) 0.3 % (0.0-1.8); Eosinophils % (Auto) 0.1 % (0.0-4.3); Hematocrit 37.2 % (35.5-45.6); Hemoglobin 12.3 gm/dl (11.8-15.2); Lymphocytes # (Auto) 0.3 K/mm3 (1.2-5.4); Mean Corpuscular HGB Conc 33 % (32-34); Mean Corpuscular Volume 93 fl (84-94); Monocytes # (Auto) 0.2 K/mm3 (0.0-0.8); Monocytes % (Auto) 5.4 % (0.0-7.3); Platelet Count 220 K/mm3 (140-440); Red Blood Count 3.99 M/mm3 (3.65-5.03); Red Cell Distribution Width 14.8 % (13.2-15.2)
--- NOTE | 2019-02-02 09:02 | Progress Note ---
Assessment and Plan - Patient Problems (1) Diverticulitis of colon with perforation Current Visit: Yes Status: Acute Qualifiers: Diverticulitis bleeding: without bleeding Qualified Code(s): K57.20 - Diverticulitis of large intestine with perforation and abscess without bleeding Plan to address problem: Pt appears stable. (Initial Assessment - 01/30) At some point, patient will need surgery for this complicated issue. Patient does have a significant infection in the pelvic area, but he does not have an acute abdomen. At this point, would recommend continued resuscitation and IV antibiotics with close monitoring. I have ordered follow-up labs for the morning. I discussed in great detail with him that if he starts to show signs of worsening, then we will move forward with resection and colostomy creation. Patient is familiar with the colostomy as his had it prior to her passing. Our hope is that he responds to the IV antibiotics such that we can set up an elective resection in the near future and hopefully avoid a colostomy bag. All questions were answered. He is naturally overwhelmed, but understands the plan. It may be helpful to have Cardiology do a pre-op assessment in light of the patient's ND history. As a side note, if we proceed with surgery in the next few days, patient is at higher risk of bleeding complications due to his current use of Plavix. Would hold for now, if possible. Today - Patient reports feeling better. He looks better. Exam is much improved. As he remains mildly distended, will stay on full liquid diet but will start a fiber supplement. I have doubts about the accuracy of today's white count. Would repeat the test tomorrow to confirm accuracy. If it is accurate, he may be okay to be discharged on oral antibiotics tomorrow. He should complete a 14 day course of antibiotics. Appreciate Cards consult. Looks like he will be successful with conservative management. Will need C-scope as an out-pt as his last one was in 2004.. Then, we will see him in the office after 4-6 weeks to start planning surgery. Would need to know if we can hold plavix for 5 days before surgery. We'll follow along. Please call with questions. Time = 10 minutes Subjective Date of service: 02/02/19 Patient Reports: Positive: feels better, pain is less, tolerating liquids well, flatus, bowel movement, other (had a difficult night with increased abdominal pain and difficulty breathing. Both have resolved. He is feeling much better this morning.). Negative: nausea, vomiting Objective Vital Signs - 12hr 02/01/19 02/01/19 02/01/19 22:00 22:17 22:28 Temperature Pulse Rate 87 87 Pulse Rate [ Anterior] Pulse Rate [ 94 H Right Brachial] Respiratory 20 Rate Respiratory Rate [Anterior] Blood Pressure 187/100 187/100 O2 Sat by Pulse 97 Oximetry 02/02/19 02/02/19 02/02/19 02:06 02:37 04:44 Temperature 99.4 F Pulse Rate 96 H 96 H Pulse Rate [ 100 H Anterior] Pulse Rate [ Right Brachial] Respiratory 20 Rate Respiratory 26 H Rate [Anterior] Blood Pressure 173/75 173/75 O2 Sat by Pulse 94 Oximetry 02/02/19 02/02/19 04:48 07:51 Temperature 99.1 F Pulse Rate 103 H Pulse Rate [ Anterior] Pulse Rate [ Right Brachial] Respiratory 18 Rate Respiratory Rate [Anterior] Blood Pressure 126/59 O2 Sat by Pulse 99 96 Oximetry - General physical appearance no distress, no pain, other (looks well) - Eyes normal occular movement - Respiratory normal expansion, normal respiratory effort - Abdomen soft, not tender, bowel sounds hypoactive, distended (mild), not guarding, not rigid, surgical scars - Integumentary no rash, no growths, no abnormal pigmentation - Psychiatric oriented to time, oriented to person, oriented to place, speech is normal, memory intact - Labs 02/02/19 05:42 02/01/19 05:11
[2019-02-02] MEDS: LOVENOX SUB-Q SCH (09:35)
[2019-02-02] MEDS: LEVAQUIN 750MG/150ML 750 MG/150 ML BAG IV SCH (09:35)
[2019-02-02] MEDS: COREG PO SCH ×2 (09:36→22:25)
[2019-02-02] MEDS: THERAGRAN Tab PO SCH (09:36)
[2019-02-02] MEDS: PROTONIX PO SCH (09:36)
[2019-02-02] MEDS: ZESTRIL PO SCH (09:36)
[2019-02-02] MEDS: PLAVIX PO SCH (09:36)
[2019-02-02] MEDS: BABY ASPIRIN PO SCH (09:36)
[2019-02-02] MEDS: IMDUR PO SCH (09:36)
[2019-02-02] MEDS: SODIUM CHLORIDE FLUSH SYRINGE 10 ML IV SCH ×2 (09:37→22:32)
--- NOTE | 2019-02-02 09:45 | Progress Note ---
<VANDANA MATUTE - Last Filed: 02/02/19 09:44> Assessment and Plan Severe abdominal pain CTA reports a perforated sigmoid diverticulitis. Hypertension Hx of CAD Normal MPI 06/2018. LVEF 45-50% by echo 06/2018. Patient is planned for elective resection in the near future. Continue medical therapy for coronary artery disease and chronic hypertension. Otherwise, conservative cardiac management. Subjective Date of service: 02/02/19 Interval history: Patient has no cardiac complaints. Objective Vital Signs Temp Pulse Pulse Pulse Resp Resp BP 02/02/19 09:34 02/02/19 08:00 101 H 19 02/02/19 07:51 99.1 F 103 H 18 126/59 02/02/19 04:48 02/02/19 04:44 100 H 26 H 02/02/19 02:37 96 H 173/75 02/02/19 02:06 99.4 F 96 H 20 173/75 02/01/19 22:28 87 187/100 02/01/19 22:17 87 187/100 02/01/19 22:00 94 H 20 02/01/19 20:20 97.7 F 94 H 20 181/96 02/01/19 13:41 98.6 F 83 18 02/01/19 10:12 176/85 BP Pulse Ox 02/02/19 09:34 94 02/02/19 08:00 02/02/19 07:51 96 02/02/19 04:48 99 02/02/19 04:44 02/02/19 02:37 02/02/19 02:06 94 02/01/19 22:28 02/01/19 22:17 02/01/19 22:00 97 02/01/19 20:20 97 02/01/19 13:41 144/63 97 02/01/19 10:12 - Physical Examination General: No Apparent Distress HEENT: Positive: PERRL Neck: Positive: trachea midline Cardiac: Positive: Reg Rate and Rhythm Lungs: Positive: Decreased Breath Sounds Neuro: Positive: Grossly Intact Extremities: Absent: edema - Labs and Meds CBC 02/02/19 Range/Units 05:42 WBC 3.9 L (4.5-11.0) K/mm3 RBC 3.99 (3.65-5.03) M/mm3 Hgb 12.3 (11.8-15.2) gm/dl Hct 37.2 (35.5-45.6) % Plt Count 220 (140-440) K/mm3 Lymph # 0.3 L (1.2-5.4) K/mm3 [place] # 0.2 (0.0-0.8) K/mm3 Eos # 0.0 (0.0-0.4) K/mm3 Baso # 0.0 (0.0-0.1) K/mm3 <RIKI FIGUEROA - Last Filed: 02/02/19 19:39> Assessment and Plan I have seen and evaluated the patient and agree with the assessment and plan. Recommend continue current medical therapy to teat coronary artery disease and hypertension. Patient may proceed to surgery without further cardiovascular evaluation. Continue current medical therapy in the periopertative period. Objective Vital Signs Temp Pulse Pulse Pulse Resp Resp BP 02/02/19 19:31 02/02/19 19:30 99 H 19 02/02/19 16:00 99 H 17 02/02/19 13:49 98.0 F 98 H 20 141/64 02/02/19 12:00 97 H 17 02/02/19 09:34 02/02/19 08:00 101 H 19 02/02/19 07:51 99.1 F 103 H 18 126/59 02/02/19 04:48 02/02/19 04:44 100 H 26 H 02/02/19 02:37 96 H 173/75 02/02/19 02:06 99.4 F 96 H 20 173/75 02/01/19 22:28 87 187/100 02/01/19 22:17 87 187/100 02/01/19 22:00 94 H 20 02/01/19 20:20 97.7 F 94 H 20 181/96 Pulse Ox 02/02/19 19:31 98 02/02/19 19:30 02/02/19 16:00 02/02/19 13:49 98 02/02/19 12:00 02/02/19 09:34 94 02/02/19 08:00 02/02/19 07:51 96 02/02/19 04:48 99 02/02/19 04:44 02/02/19 02:37 02/02/19 02:06 94 02/01/19 22:28 02/01/19 22:17 02/01/19 22:00 97 02/01/19 20:20 97 - Labs and Meds CBC 02/02/19 Range/Units 05:42 WBC 3.9 L (4.5-11.0) K/mm3 RBC 3.99 (3.65-5.03) M/mm3 Hgb 12.3 (11.8-15.2) gm/dl Hct 37.2 (35.5-45.6) % Plt Count 220 (140-440) K/mm3 Lymph # 0.3 L (1.2-5.4) K/mm3 [place] # 0.2 (0.0-0.8) K/mm3 Eos # 0.0 (0.0-0.4) K/mm3 Baso # 0.0 (0.0-0.1) K/mm3
--- NOTE | 2019-02-02 14:56 | Progress Note ---
Assessment and Plan Assessment and plan: 83-year-old man who presents to the hospital with abdominal pain 1 week which is located in the left lower quadrant Past Medical History: arthritis, CAD, hypertension, hyperlipidemia, other (BPH), GERD, osteoarthritis Acute perforated diverticulitis/sepsis Management per surgery, antibiotics -Patient improved with conservative management -Tolerated diet -Leukocytosis resolved, doesn't look like real, will check in AM Hypertension with urgency - Continue all medications, monitor closely and adjust as needed Coronary artery disease - Continue home medications GERD - continue Protonix DVT prophylaxis DisPosition; possible DC tomorrow. History Interval history: Patient was seen and evaluated this morning, patient complains gas. He tolerated diet. Hospitalist Physical - Physical exam Narrative exam: Not in cardiopulmonary distress. The patient appeared well nourished and normally developed. Vital signs as documented. Head exam is unremarkable. No scleral icterus . Neck is without jugular venous distension, thyromegaly, or carotid bruits. Lungs are clear to auscultation. Cardiac exam reveals regular rate and Rhythm. First and second heart sounds normal. No murmurs, rubs or gallops. Abdominal exam reveals mild diffuse abdominal tenderness. Extremities are nonedematous and both femoral and pedal pulses are normal. VENDOR MANAGEMENT SPECIALIST: Alert and oriented 3. No focal weakness. - Constitutional Vitals: Temp Pulse Resp BP Pulse Ox 98.0 F 98 H 20 141/64 98 02/02/19 13:49 02/02/19 13:49 02/02/19 13:49 02/02/19 13:49 02/02/19 13:49 General appearance: Present: no acute distress Results - Labs CBC & Chem 7: 02/02/19 05:42 02/01/19 05:11 Labs: Laboratory Last Values WBC 3.9 K/mm3 (4.5-11.0) L 02/02/19 05:42 RBC 3.99 M/mm3 (3.65-5.03) 02/02/19 05:42 Hgb 12.3 gm/dl (11.8-15.2) 02/02/19 05:42 Hct 37.2 % (35.5-45.6) 02/02/19 05:42 MCV 93 fl (84-94) 02/02/19 05:42 MCH 31 pg (28-32) 02/02/19 05:42 MCHC 33 % (32-34) 02/02/19 05:42 RDW 14.8 % (13.2-15.2) 02/02/19 05:42 Plt Count 220 K/mm3 (140-440) 02/02/19 05:42 Lymph % (Auto) 7.0 % (13.4-35.0) L 02/02/19 05:42 [place] % (Auto) 5.4 % (0.0-7.3) 02/02/19 05:42 Eos % (Auto) 0.1 % (0.0-4.3) 02/02/19 05:42 Baso % (Auto) 0.3 % (0.0-1.8) 02/02/19 05:42 Lymph # 0.3 K/mm3 (1.2-5.4) L 02/02/19 05:42 [place] # 0.2 K/mm3 (0.0-0.8) 02/02/19 05:42 Eos # 0.0 K/mm3 (0.0-0.4) 02/02/19 05:42 Baso # 0.0 K/mm3 (0.0-0.1) 02/02/19 05:42 Add Manual Diff Complete 02/01/19 05:11 Total Counted 100 02/01/19 05:11 Seg Neutrophils % 87.2 % (40.0-70.0) H 02/02/19 05:42 Seg Neuts % (Manual) 95.0 % (40.0-70.0) H 02/01/19 05:11 0 % 02/01/19 05:11 5.0 % (13.4-35.0) L 02/01/19 05:11 Reactive Lymphs % (Man) 0 % 02/01/19 05:11 0 % (0.0-7.3) 02/01/19 05:11 0 % (0.0-4.3) 02/01/19 05:11 0 % (0.0-1.8) 02/01/19 05:11 0 % 02/01/19 05:11 0 % 02/01/19 05:11 0 % 02/01/19 05:11 0 % 02/01/19 05:11 Nucleated RBC % Not Reportable 02/01/19 05:11 Seg Neutrophils # 3.4 K/mm3 (1.8-7.7) 02/02/19 05:42 Seg Neutrophils # Man 16.7 K/mm3 (1.8-7.7) H 02/01/19 05:11 Band Neutrophils # 0.0 K/mm3 02/01/19 05:11 0.9 K/mm3 (1.2-5.4) L 02/01/19 05:11 Abs React Lymphs (Man) 0.0 K/mm3 02/01/19 05:11 0.0 K/mm3 (0.0-0.8) 02/01/19 05:11 0.0 K/mm3 (0.0-0.4) 02/01/19 05:11 0.0 K/mm3 (0.0-0.1) 02/01/19 05:11 0.0 K/mm3 02/01/19 05:11 0.0 K/mm3 02/01/19 05:11 0.0 K/mm3 02/01/19 05:11 Blast Cells # 0.0 K/mm3 02/01/19 05:11 WBC Morphology Not Reportable 02/01/19 05:11 Hypersegmented Neuts Not Reportable 02/01/19 05:11 Hyposegmented Neuts Not Reportable 02/01/19 05:11 Hypogranular Neuts Not Reportable 02/01/19 05:11 Not Reportable 02/01/19 05:11 Not Reportable 02/01/19 05:11 Not Reportable 02/01/19 05:11 Not Reportable 02/01/19 05:11 Not Reportable 02/01/19 05:11 Not Reportable 02/01/19 05:11 Consistent w auto 02/01/19 05:11 Not Reportable 02/01/19 05:11 Plt Clumps, EDTA Not Reportable 02/01/19 05:11 Not Reportable 02/01/19 05:11 Not Reportable 02/01/19 05:11 Not Reportable 02/01/19 05:11 Plt Morphology Comment Not Reportable 02/01/19 05:11 RBC Morphology Not Reportable 02/01/19 05:11 Dimorphic RBCs Not Reportable 02/01/19 05:11 Not Reportable 02/01/19 05:11 Not Reportable 02/01/19 05:11 1+ 02/01/19 05:11 1+ 02/01/19 05:11 Not Reportable 02/01/19 05:11 Not Reportable 02/01/19 05:11 Not Reportable 02/01/19 05:11 Not Reportable 02/01/19 05:11 Not Reportable 02/01/19 05:11 Not Reportable 02/01/19 05:11 Not Reportable 02/01/19 05:11 Not Reportable 02/01/19 05:11 Not Reportable 02/01/19 05:11 Not Reportable 02/01/19 05:11 Not Reportable 02/01/19 05:11 1+ 02/01/19 05:11 Not Reportable 02/01/19 05:11 Not Reportable 02/01/19 05:11 Not Reportable 02/01/19 05:11 Acanthocytes (Spur) Not Reportable 02/01/19 05:11 Rouleaux Not Reportable 02/01/19 05:11 Not Reportable 02/01/19 05:11 Not Reportable 02/01/19 05:11 Not Reportable 02/01/19 05:11 Not Reportable 02/01/19 05:11 Hem Pathologist Commnt No 02/01/19 05:11 PT 15.5 Sec. (12.2-14.9) H 01/29/19 17:46 INR 1.26 (0.87-1.13) H 01/29/19 17:46 APTT 54.7 Sec. (24.2-36.6) H 01/29/19 17:46 Sodium 141 mmol/L (137-145) 02/01/19 05:11 Potassium 3.8 mmol/L (3.6-5.0) 02/01/19 05:11 Chloride 110.3 mmol/L (98-107) H 02/01/19 05:11 Carbon Dioxide 21 mmol/L (22-30) L 02/01/19 05:11 14 mmol/L 02/01/19 05:11 BUN 19 mg/dL (9-20) 02/01/19 05:11 1.0 mg/dL (0.8-1.5) 02/01/19 05:11 Estimated GFR > 60 ml/min 02/01/19 05:11 19 % 02/01/19 05:11 Glucose 102 mg/dL (75-100) H 02/01/19 05:11 Calcium 7.6 mg/dL (8.4-10.2) L 02/01/19 05:11 0.80 mg/dL (0.1-1.2) 01/29/19 17:46 AST 10 units/L (5-40) 01/29/19 17:46 ALT 11 units/L (7-56) 01/29/19 17:46 76 units/L (35-129) 01/29/19 17:46 46 units/L (55-170) L 01/29/19 17:46 CK-MB (CK-2) 1.0 ng/mL (0.0-4.0) 01/29/19 17:46 CK-MB (CK-2) Rel Index 2.1 (0-4) 01/29/19 17:46 < 0.010 ng/mL (0.00-0.029) 01/29/19 17:46 7.0 g/dL (6.3-8.2) 01/29/19 17:46 3.4 g/dL (3.9-5) L 01/29/19 17:46 0.9 % 01/29/19 17:46 18 units/L (13-60) 01/29/19 17:46 Yellow (Yellow) 01/29/19 21:43 Clear (Clear) 01/29/19 21:43 6.0 (5.0-7.0) 01/29/19 21:43 Ur Specific [place] 1.018 (1.003-1.030) 01/29/19 21:43 <15 mg/dl mg/dL (Negative) 01/29/19 21:43 Neg mg/dL (Negative) 01/29/19 21:43 Neg mg/dL (Negative) 01/29/19 21:43 Neg (Negative) 01/29/19 21:43 Neg (Negative) 01/29/19 21:43 Neg (Negative) 01/29/19 21:43 < 2.0 mg/dL (<2.0) 01/29/19 21:43 Ur Leukocyte Esterase Neg (Negative) 01/29/19 21:43 1.0 /HPF (0.0-6.0) 01/29/19 21:43 2.0 /HPF (0.0-6.0) 01/29/19 21:43 U Epithel Cells (Auto) < 1.0 /HPF (0-13.0) 01/29/19 21:43 Active Medications - Current Medications Current Medications: Generic Name Dose Route Start Last Admin Trade Name Freq PRN Reason Stop Dose Admin Acetaminophen 650 mg 01/29/19 21:11 Tylenol PO Q4H PRN Pain MILD(1-3)/Fever >100.5/HERNANDEZ Albuterol 2.5 mg 02/02/19 04:45 02/02/19 14:00 Proventil IH 2.5 mg Q4HRT CHATO Administration Aspirin 81 mg 01/31/19 10:00 02/02/19 09:36 Baby Aspirin PO 81 mg QDAY CHATO Administration Atorvastatin Calcium 80 mg 01/31/19 22:00 02/01/19 22:17 Lipitor PO 80 mg QHS CHATO Administration Carvedilol 12.5 mg 01/31/19 10:00 02/02/19 09:36 Coreg PO 12.5 mg BID CHATO Administration Clopidogrel Bisulfate 75 mg 01/31/19 10:00 02/02/19 09:36 Plavix PO 75 mg DAILY CHATO Administration Enoxaparin Sodium 40 mg 01/30/19 10:00 02/02/19 09:35 Lovenox SUB-Q 40 mg QDAY CHATO Administration Finasteride 5 mg 01/31/19 22:00 02/01/19 22:17 Proscar PO 5 mg QHS CHATO Administration Hydralazine HCl 10 mg 01/30/19 16:09 02/02/19 02:37 Apresoline IV 10 mg Q4H PRN Administration BP >160/100 Levofloxacin/Dextrose 750 mg in 150 mls @ 100 mls/hr 01/30/19 10:00 02/02/19 09:35 Levaquin 750mg/150ml IV 100 mls/hr Q24HR CHATO Administration Protocol Metronidazole 500 mg in 100 mls @ 100 mls/hr 01/29/19 22:00 02/02/19 05:21 Flagyl 500 Mg/100 Ml IV 100 mls/hr Q8HR CHATO Administration Protocol Isosorbide Mononitrate 60 mg 01/31/19 10:00 02/02/19 09:36 Imdur PO 60 mg QDAY CHATO Administration Ketorolac Tromethamine 15 mg 01/30/19 12:00 02/02/19 05:21 Toradol IV 02/04/19 11:59 15 mg Q6HR CHATO Administration Lisinopril 10 mg 01/31/19 10:00 02/02/19 09:36 Zestril PO 10 mg QDAY CHATO Administration Morphine Sulfate 2 mg 01/29/19 21:11 02/02/19 04:00 Morphine IV 2 mg Q4H PRN Administration Pain, Moderate (4-6) Multivitamins 1 each 01/31/19 10:00 02/02/19 09:36 Theragran Tab PO 1 each DAILY CHATO Administration Ondansetron HCl 4 mg 01/29/19 21:11 02/02/19 11:56 Zofran IV 4 mg Q8H PRN Administration Nausea And Vomiting Pantoprazole Sodium 40 mg 01/31/19 10:00 02/02/19 09:36 Protonix PO 40 mg QDAY CHATO Administration Psyllium Hydrophilic Mucilloid 1 each 02/02/19 10:00 Metamucil PO QDAY CHATO Sodium Chloride 10 ml 01/29/19 22:00 02/02/19 09:37 Sodium Chloride Flush Syringe 10 Ml IV 10 ml BID CHATO Administration Sodium Chloride 10 ml 01/29/19 21:11 Sodium Chloride Flush Syringe 10 Ml IV PRN PRN LINE FLUSH Tamsulosin HCl 0.4 mg 01/31/19 22:00 02/01/19 22:16 Flomax PO 0.4 mg QHS CHATO Administration
[2019-02-02] MEDS: METAMUCIL PO SCH (15:57)
[2019-02-02] MEDS: FLOMAX PO SCH (22:27)
[2019-02-02] MEDS: PROSCAR PO SCH (22:27)
[2019-02-03] MEDS: MORPHINE IV PRN (04:27)
[2019-02-03] MEDS: PROVENTIL IH SCH ×3 (04:41→18:07)
[2019-02-03 05:50] LABS: Hematocrit 35.9 % (35.5-45.6); Hemoglobin 11.7 gm/dl (11.8-15.2); Mean Corpuscular HGB Conc 33 % (32-34); Mean Corpuscular Volume 94 fl (84-94); Platelet Count 211 K/mm3 (140-440); Red Blood Count 3.84 M/mm3 (3.65-5.03); Red Cell Distribution Width 15.4 % (13.2-15.2)
[2019-02-03 08:34] LABS: Band Neutrophils # (Manual) 2.4 K/mm3; Basophils % (Manual) 0 % (0.0-1.8); Eosinophils % (Manual) 0 % (0.0-4.3); Total Cells Counted 100
[2019-02-03 08:36] LABS: Toxic Vacuolation 1+
[2019-02-03 08:37] LABS: Burr Cells 1+; Large Platelets Few; Platelet Estimate Consistent w Auto; Poikilocytosis 1+
--- NOTE | 2019-02-03 09:01 | Discharge Summary ---
Providers - Providers Date of Admission: 01/29/19 21:11 Date of discharge: 02/03/19 Attending physician: ELLA JOHNSON MD 01/29/19 20:22 Consult to Physician [CONS] Urgent Comment: Consulting Provider: KEIRA ACKERMAN Physician Instructions: Reason For Exam: perforated diverticulitis 01/30/19 16:07 Consult to Physician [CONS] Routine Comment: Consulting Provider: STACEY GORDON Physician Instructions: Reason For Exam: preop eval 01/31/19 09:00 Physical Therapy Evaluation and Treat [CONS] Routine Comment: Reason For Exam: Weakness 01/31/19 13:09 Consult to Wound/ET Nurse [CONS] Routine Reason For Exam: Juan for possible ostomy [facility] Reason for admission: Diverticulitis of the colon with perforation Condition: Fair Pertinent studies: CT abdomen and pelvis Abdominal x-ray Hospital course: 83-year-old man who presents to the hospital with abdominal pain 1 week which is located in the left lower quadrant. Past Medical History: arthritis, CAD, hypertension, hyperlipidemia, other (BPH), GERD, osteoarthritis. CT abdomen and pelvis was done 1. Perforated acute sigmoid diverticulitis. There is pericolonic gas and fluid but no discrete, drainable fluid collection is seen at this time. There is a small amount of free fluid and free air. No obstruction is seen. Imaging follow- up is recommended after treatment to confirm resolution. 2. There is mild secondary inflammation of the appendix and pelvic loops of small bowel. Gas is noted throughout the appendix. 3. Subtle 1.4 cm hypodense lesion in the medial spleen is nonspecific. Follow-up is recommended. 4. Numerous additional, incidental findings as above. Acute perforated diverticulitis/sepsis; Surgery was consulted and he recommend medical mangement and will follow him the patient in 4-6 weeks for possible surgery. Patient improved markedly and patient tolerated diet and discharged home. Cardiology consult appreciated. patient was hemodynamically stable at the time of discharge. Disposition: DC-30 STILL A PATIENT - Discharge Diagnoses (1) Acute abdominal pain Status: Acute (2) Diverticulitis of colon with perforation Status: Acute Qualifiers: Diverticulitis bleeding: without bleeding Qualified Code(s): K57.20 - Dive rticulitis of large intestine with perforation and abscess without bleeding (3) Hx of heart artery stent Status: Acute Comment: this is unchanged since stable. No acute ischemic events. (4) CAD (coronary artery disease) Status: Chronic Qualifiers: Coronary Disease-Associated Artery/Lesion type: unspecified vessel or lesion type [place] vs. transplanted heart: [place] heart Associated angina: with unstable angina Qualified Code(s): I25.110 - Atherosclerotic heart disease of [place] coronary artery with unstable angina pectoris (5) HTN (hypertension) Status: Chronic Qualifiers: Hypertension type: essential hypertension Qualified Code(s): I10 - Essential (primary) hypertension Comment: Well-controlled (6) Hyperlipidemia Status: Chronic Core Measure Documentation - Palliative Care Palliative Care/ Comfort Measures: Not Applicable - Core Measures Any of the following diagnoses?: none Exam - Physical Exam Narrative exam: Not in cardiopulmonary distress. The patient appeared well nourished and normally developed. Vital signs as documented. Head exam is unremarkable. No scleral icterus . Neck is without jugular venous distension, thyromegaly, or carotid bruits. Lungs are clear to auscultation. Cardiac exam reveals regular rate and Rhythm. First and second heart sounds normal. No murmurs, rubs or gallops. Abdominal exam soft, non tender, normal bowel sounds. Extremities are nonedematous and both femoral and pedal pulses are normal. RENTAL AGENT: Alert and oriented 3. No focal weakness. - Constitutional Vitals: Temp Pulse Resp BP Pulse Ox 98.5 F 89 20 127/68 97 02/03/19 07:53 02/03/19 07:53 02/03/19 07:53 02/03/19 07:53 02/03/19 07:53 Plan Activity: no restrictions Weight Bearing Status: Full Weight Bearing Diet: advance as tolerated Follow up with: ABEBA OLIVAS MD [Primary Care Provider] - 3-5 Days KEIRA ACKERMAN MD [Staff Physician] - 03/07/19 Prescriptions: Ciprofloxacin HCl [Ciprofloxacin TAB] 500 mg PO Q12HR #20 tab metroNIDAZOLE [Flagyl TAB] 500 mg PO Q8H #30 tab
--- NOTE | 2019-02-03 09:28 | Progress Note ---
Assessment and Plan - Patient Problems (1) Diverticulitis of colon with perforation Current Visit: Yes Status: Acute Qualifiers: Diverticulitis bleeding: without bleeding Qualified Code(s): K57.20 - Diverticulitis of large intestine with perforation and abscess without bleeding Plan to address problem: Pt appears stable. (Initial Assessment - 01/30) At some point, patient will need surgery for this complicated issue. Patient does have a significant infection in the pelvic area, but he does not have an acute abdomen. At this point, would recommend continued resuscitation and IV antibiotics with close monitoring. I have ordered follow-up labs for the morning. I discussed in great detail with him that if he starts to show signs of worsening, then we will move forward with resection and colostomy creation. Patient is familiar with the colostomy as his had it prior to her passing. Our hope is that he responds to the IV antibiotics such that we can set up an elective resection in the near future and hopefully avoid a colostomy bag. All questions were answered. He is naturally overwhelmed, but understands the plan. It may be helpful to have Cardiology do a pre-op assessment in light of the patient's RI history. As a side note, if we proceed with surgery in the next few days, patient is at higher risk of bleeding complications due to his current use of Plavix. Would hold for now, if possible. Today - Patient reports feeling better. He looks better. Exam is much improved. WBC more reasonable today. Improved compared to previous days. Needs to complete 2 week course of Abx. Appreciate Cards consult. Looks like he will be successful with conservative management. Will need C-scope as an out-pt as his last one was in 2004.. Then, we will see him in the office after 4-6 weeks to start planning surgery. Would need to know if we can hold plavix for 5 days before surgery. Rec: 1) ok to d/c home from my perspective 2) Diet as tolerated 3) Should take metamucil or citracel daily 4) Needs C-scope as out-pt 5) f/u with me in 4-6 weeks. Should have c-scope done before visit. 6) Complete 2 week course of Abx Please call with questions. Time = 10 minutes Subjective Date of service: 02/03/19 Patient Reports: Positive: feels better, pain is less, tolerating liquids well, flatus, bowel movement, other (still a little gas, but abdomen is almost back to normal). Negative: nausea, vomiting Objective Vital Signs - 12hr 02/02/19 02/02/19 02/03/19 22:25 23:38 02:02 Temperature 98.4 F Pulse Rate 94 H Pulse Rate [ 89 Anterior] Respiratory 18 Rate Respiratory 19 Rate [Anterior] Blood Pressure 123/65 O2 Sat by Pulse Oximetry 02/03/19 02/03/19 04:00 07:53 Temperature 98.5 F Pulse Rate 89 Pulse Rate [ 90 Anterior] Respiratory 20 Rate Respiratory 19 Rate [Anterior] Blood Pressure 127/68 O2 Sat by Pulse 97 Oximetry - General physical appearance no distress, no pain, other (looks good) - Respiratory normal expansion, normal respiratory effort - Abdomen soft, not tender, distended (mild; also with protuberant abdomen), not guarding, not rigid, surgical scars - Integumentary no rash, no growths, no abnormal pigmentation - Psychiatric oriented to time, oriented to person, oriented to place, speech is normal, memory intact - Labs 02/03/19 05:31 02/01/19 05:11
[2019-02-03] MEDS: IMDUR PO SCH (09:39)
[2019-02-03] MEDS: THERAGRAN Tab PO SCH (09:40)
[2019-02-03] MEDS: COREG PO SCH (09:40)
[2019-02-03] MEDS: LOVENOX SUB-Q SCH (09:40)
[2019-02-03] MEDS: PLAVIX PO SCH (09:40)
[2019-02-03] MEDS: LEVAQUIN 750MG/150ML 750 MG/150 ML BAG IV SCH (09:40)
[2019-02-03] MEDS: METAMUCIL PO SCH (09:40)
[2019-02-03] MEDS: BABY ASPIRIN PO SCH (09:40)
[2019-02-03] MEDS: PROTONIX PO SCH (09:41)
[2019-02-03] MEDS: ZESTRIL PO SCH (09:41)
[2019-02-03] MEDS: SODIUM CHLORIDE FLUSH SYRINGE 10 ML IV SCH (09:41)
[2019-02-03] MEDS: TORADOL IV SCH (12:15)
[2019-02-03 14:05] VITALS: BP 99/75
== END 2019-02-03 14:35 | disposition home health service (06) | DRG 872 ==
LOC: ED 17:10 → 2B-ACE 21:11
PROVIDERS: ADMIT Internal Medicine; ATTEND Internal Medicine
DX: A41.9 Sepsis, unspecified organism (principal); K57.20 Diverticulitis of large intestine with perforation and abscess without bleeding; I25.110 Atherosclerotic heart disease of native coronary artery with unstable angina pectoris; I10 Essential (primary) hypertension; K21.9 Gastro-esophageal reflux disease without esophagitis; M19.90 Unspecified osteoarthritis, unspecified site; N40.0 Benign prostatic hyperplasia without lower urinary tract symptoms; E78.5 Hyperlipidemia, unspecified; I16.0 Hypertensive urgency; F12.90 Cannabis use, unspecified, uncomplicated; Z95.5 Presence of coronary angioplasty implant and graft; I25.2 Old myocardial infarction; Z87.11 Personal history of peptic ulcer disease; Z87.891 Personal history of nicotine dependence; Z72.89 Other problems related to lifestyle; Z79.82 Long term (current) use of aspirin; Z79.899 Other long term (current) drug therapy
CPT/HCPCS: 36415; 71045; 74177; 80048; 80053; 81001; 82550; 82553; 83690; 84484; 85007; 85025; 85610; 85730; 87116; 93005; 93010; 94010; 94640; 94760; 96361; 96365; 96375; G0378; A9270-GY; C9113; J0360; J1650; J1885; J1956; J2270; J2405; J3010; J7030; Q9967